=== PATIENT | female | born 1955 | race Caucasian/White ===

== ENCOUNTER 2016-07-08 21:54 | Inpatient (IN) | payer MEDICARE, MEDICAID ==
[~2016-07-08] VITALS: Ht 121.9 cm; Wt 80.0 kg
[2016-07-08 22:05] VITALS: BP 158/85; PULSE 77; RESP 18; O2SAT 88
[2016-07-08 22:43] LABS: BASOPHILS % (AUTO) 0.2 % (0-3); EOSINOPHILS % (AUTO) 0.2 % (0-5); MONOCYTES % (AUTO) 4.7 % (4-12); Mean Corpuscular Hemoglobin 27.2 pg (27.0-35.0); Mean Corpuscular Volume 94.4 fL (81-100); NEUTROPHILS % (AUTO) 83.7 % (40-74); Platelet Count 246 bil/L (150-400)
--- NOTE | 2016-07-08 23:13 | ED.REPORT ---
HPI-Dyspnea / Wheezing Date of Service Jul 08, 2016 ED Provider: Aide Padilla MD Pt is a 60 y/o female w/ a hx of dementia, HTN, T2DM, CVA, DVT, PE, presenting to the ED via EMS due to increasing SOB onset today. She is sent from her retirement with concern for pneumonia and fluid overload. She c/o left chest, left back, and left abdominal pain. There is no documented history of CHF in the retirement documentation. No further HPI is available because patient is demented. There are staff or family members present. CODE STATUS: DNR / LIMITED INTERVENTIONS Nursing Notes Stated Complaint: TROUBLE BREATHING Chief Complaint: Respiratory Complaints Nursing Notes Reviewed: Yes Allergies: Coded Allergies: Influenza Virus Vaccines (Verified Allergy, Unknown, 07/08/16) Sulfa (Sulfonamide Antibiotics) (Verified Allergy, Unknown, 07/08/16) ether (Verified Allergy, Unknown, 07/08/16) heparin (Verified Allergy, Unknown, 07/08/16) lisinopril (Verified Allergy, Unknown, 07/08/16) General Time Seen by MD: 23:12 Chief Complaint Congestive heart failure, Shortness of breath Hx Obtained From: Patient, Theater Manager, EMS Unable to Obtain Hx: Mental status Arrived By: Ambulance Past Medical History Past Medical History Anemia Antiphospholipid syndrome Secondary thrombocytopenia Type 2 diabetes mellitus Hyperlipidemia Major depressive disorder Anxiety disorder Chronic pain syndrome Encephalopathy Peripheral vascular disease Essential hypertension CVA Hx DVT and PE Past Surgical History Bilateral BKA Smoking History Unknown if Ever Smoker Ambulatory Status Wheelchair Review of Systems Unable to Obtain ROS Mental status Physical Exam Initial Vital Signs Vital Signs (First) Date Time Temp Pulse Resp B/P Pulse Ox O2 Delivery O2 Flow Rate FiO2 07/08/16 22:05 36.4 77 18 158/85 88 Room Air 07/09/16 01:13 2 Initial VS: Reviewed, Vital signs abnormal Head / Eyes: Atraumatic, Normocephalic ENT: Mucous membranes moist, Conjunctiva normal, No scleral icterus Abdomen / GI: Soft Skin: Warm, Dry Neurologic: Alert General/Constitutional: Awake, No acute distress Pleasantly demented Neck: Atraumatic, Full range of motion Respiratory / Chest: Atraumatic, No chest wall deformity Coarse breath sounds throughout Bibasilar rales. Cardiovascular: Heart rate NL, Regular rhythm, Heart sounds NL, No gallop, No murmurs, No rubs, Cap refill not delayed, Peripheral circulation NL Fluid overload of upper extremities Interpretation & Diagnostics Lab Results Interpretation Result Diagram: 07/08/16 2215 07/08/16 2215 Test 07/08/16 22:15 07/09/16 00:35 White Blood Count 10.5th/mm3 (3.8-10.1) Red Blood Count 3.05mil/mm3 (3.90-5.20) Hemoglobin 8.3g/dL (12.0-15.6) Hematocrit 28.8% (35.0-46.0) Mean Corpuscular Volume 94.4fL (81-100) Mean Corpuscular Hemoglobin 27.2pg (27.0-35.0) Mean Corpuscular Hemoglobin Concent 28.8% (32.0-37.0) Red Cell Distribution Width 15.4% (12.3-15.4) Platelet Count 246bil/L (150-400) Neutrophils (%) (Auto) 83.7% (40-74) Lymphocytes (%) (Auto) 10.1% (14-46) Monocytes (%) (Auto) 4.7% (4-12) Eosinophils (%) (Auto) 0.2% (0-5) Basophils (%) (Auto) 0.2% (0-3) Hold Purple Top Tube Received (Received) Prothrombin Time 37.5sec (8.1-12.5) Prothromb Time International Ratio 3.42ratio Activated Partial Thromboplast Time 35.6sec (22.8-33.0) Hold Blue Top Tube Received (Received) Sodium Level 139mEq/L (134-144) Potassium Level 4.8mEq/L (3.5-5.2) Chloride Level 100mEq/L (97-108) Carbon Dioxide Level 26mmol/L (18-29) Blood Urea Nitrogen 53mg/dL (8-27) Creatinine 2.18mg/dL (0.57-1.00) Estimat Glomerular Filtration Rate 33mL/min (>59) Glucose Level 102mg/dL (60-99) Lactic Acid Level 1.0mmol/L (0.4-2.0) Calcium Level 8.6mg/dL (8.5-10.1) Total Bilirubin 0.9mg/dL (0.0-1.2) Aspartate Amino Transf (AST/SGOT) 51U/L (0-50) Alanine Aminotransferase (ALT/SGPT) 31U/L (0-32) Alkaline Phosphatase 116U/L (25-165) Troponin T 0.140ug/L (0.0-0.011) Pro-B-Type Natriuretic Peptide > 81059wv/mL (0-287) Total Protein 6.5g/dL (6.4-8.4) Albumin 2.3g/dL (3.4-5.0) Hold Red Top Tube Received (Received) Hold Ariton Top Tube Received (Received) Hold Shelton Top Tube Received (Received) Urine Color Yellow (YELLOW) Urine Appearance Hazy (CLEAR,HAZY) Urine pH 6.0 (5.0-8.0) Urine Specific [place] 1.020 (1.003-1.035) Urine Protein 30mg/dL (NEG,TRACE) Urine Glucose (UA) Negativemg/dL (NEGATIVE) Urine Ketones Tracemg/dL (NEGATIVE) Urine Occult Blood Small (NEGATIVE) Urine Nitrite Positive (NEGATIVE) Urine Bilirubin Negative (NEGATIVE) Urine Urobilinogen Normalmg/dL (NORMAL) Urine Leukocyte Esterase Small (NEGATIVE) Urine RBC 3-10/hpf (0-2) Urine WBC >50/hpf (0-5) Urine Epithelial Cells Moderate/hpf (NONE-MOD) Urine Crystals None seen (NONE SEEN) Urine Bacteria Many/hpf (NONE-FEW) Urine Hyaline Casts None/lpf (NONE) Urine Granular Casts None seen (NONE SEEN) Urine Waxy Casts None seen (NONE SEEN) Urine Red Blood Cell Casts None seen (NONE SEEN) Urine White Blood Cell Casts None seen (NONE SEEN) Urine Mucus None seen (None Seen) Urine Trichomonas None seen (NONE SEEN) Urine Yeast None (NONE SEEN) Urinalysis Comment None Urine Culture Reflexed Indicated ECG Interpretation ECG Interpretation: Normal sinus rhythm rate 77 Flattened T waves in III, AvR, AvL Time: 23:15 Interpreted by: ED physician Normal ECG Interpretation: No acute ischemic changes X-Ray Chest Interpretation Chest Xray Interpretation: Infiltrate including the left lung. Low lung volumes bilaterally. CHF. View: Portable, 1 view Interpretation / Wet Read by: Wet read ED physician Re-Eval/Medical Decision Med Decision/Clinical Course 60-year-old female with known past medical history of upper extremity DVT, multiple CVAs, dementia sent here from retirement with concern for pneumonia. Differential diagnosis includes but is not limited to pneumonia versus electrolyte abnormality versus urinary tract infection versus fluid overload. Unfortunately, patient has never been here before and I do not know her baseline labs. She has a creatinine of 2, along with mildly elevated troponin, elevated BNP, chest x-ray concerning for pneumonia, UTI, and multiple sacral decubitus ulcers. On her retirement records, she is DNR/DNI. I did attempt to contact her son twice as he is her power of prosecuting attorney, to find out what he would wish her to have done, as at this time, I do not feel aggressive intervention would be appropriate. I was unable to contact him. Given this, I have treated her with aspirin, along with broad-spectrum antibiotics for UTI and pneumonia. I do not feel she requires a cardiology consult at this time. I do believe that the elevated troponin is likely secondary to her fluid overload and renal insufficiency of unknown chronicity. My exam of the patient is very limited secondary to her dementia. I have explained to her that she is being admitted to the hospital, though I am unsure if she is aware of what is going on. Patient has been accepted by the hospitalist. Re-Evaluation/Progress #1: Time of Eval: 00:01 Re-Evaluation/Progress Note: Pt rechecked. Informed pt of need for admission. Pt understands and agrees with need for admission. All questions addressed. Re-Evaluation/Progress #2: Time of Eval: 00:49 Re-Evaluation/Progress Note: Attempted to reach the son without success. Consultation : Referral / Consult Name: Bhavna Vazquez MD Consulted With: Hospitalist Call Returned at: 02:02 Air Conditioning Installer: Will see patient, Agrees with eval, Agrees with plan, Accepts admit Note: Case discussed. Counseled Regarding: Diagnosis, Lab results, Need for admission Discharge & Departure Impression: Primary Impression: Pneumonia involving left lung Pneumonia type: due to unspecified organism Lung location: unspecified part of lung Qualified Code: J18.9 - Pneumonia, unspecified organism Additional Impressions: Acute heart failure Heart failure type: unspecified heart failure type Qualified Code: I50.9 - Heart failure, unspecified Fluid overload Hypervolemia type: unspecified Qualified Code: E87.70 - Fluid overload, unspecified UTI (urinary tract infection) Urinary tract infection type: site unspecified Hematuria presence: without hematuria Qualified Code: N39.0 - Urinary tract infection, site not specified Elevated troponin Renal insufficiency Anemia Anemia type: unspecified type Qualified Code: D64.9 - Anemia, unspecified Disposition: ADMITTED TO HOSPITAL Discharge Condition All VS Reviewed: Yes Condition: Stable Referrals: Lizbeth Flores MD (PCP) [place] Attestation Portions of this note were transcribed by Malcolm Kuhn. I, Dr. Padilla personally performed the history, physical exam and medical decision-making; I reviewed and confirmed the accuracy of the information in the transcribed note. Signed by Jaycee Landrum, 07/08/16 - [id number] copies to: Lizbeth Flores MD, Rebecca A MD Jul 08, 2016 23:13 MALCOLM KUHN Jul 08, 2016 23:17
[2016-07-08 23:36] LABS: INR 3.42 ratio
[2016-07-08] MEDS ORDERED: Vancomycin Inj 1,000 MG in IV Premix 1 EACH IV ONE (23:55)
[2016-07-08] MEDS ORDERED: Piperacillin-Tazo 3.375 Gm Inj 3.375 GM in Dextrose 5% Minibag Plus 50 ML IV ONE (23:55)
[2016-07-09] VITALS (9 sets, daily range): BP systolic 127–179; BP diastolic 61–103; PULSE 76–91; RESP 18–20; O2SAT 93–100
[2016-07-09] MEDS ORDERED: Vancomycin Inj 1,000 MG in IV Premix 1 EACH IV SCH
[2016-07-09] MEDS ORDERED: Vancomycin Inj 1,000 MG in IV Premix 1 EACH IV ONE
[2016-07-09] MEDS ORDERED: 0.9% Sodium Chloride 500 ML IV ONE (00:25)
[2016-07-09 01:12] LABS: APPEARANCE,URINE HAZY (CLEAR,HAZY); COLOR,URINE YELLOW (YELLOW); OCCULT BLOOD,URINE SMALL (NEGATIVE); UROBILINOGEN,URINE NORMAL (NORMAL)
[2016-07-09] MEDS ORDERED: Ondansetron 2 mg/mL 2 mL Inj IVPUSH PRN (02:05)
[2016-07-09] MEDS ORDERED: Alum-Mag Hydrox-Simeth 30 mL Suspension PO PRN (02:05)
--- NOTE | 2016-07-09 03:06 | PCM.HPMED ---
Subjective Date of Service Jul 09, 2016 Primary Provider: Admitting Physician: Bhavna Vazquez MD Primary Care Physician: Lizbeth Flores MD Attending Physician: Bhavna Vazquez MD Admit Status: From the Emergency Department Chief Complaint: Shortness of breath History of Present Illness: Pt is a 60 y/o female who resides at [facility] w/ a hx of pseudobulbar dementia, HTN, T2DM diet controlled, CVA on warfarin, DVT, PE, who presented to the ED via EMS due to increasing SOB onset today. She is sent from her senior living with concern for pneumonia and fluid overload. She c/o left chest, left back, and left abdominal pain. There is no documented history of CHF in the senior living documentation nor in [facility]. Patient is demented but she did know that she takes Dilaudid TID and would like to make sure that she gets her pain medication. Review of Systems: Patient unable to give a review of symptoms due to AMS Allergies Coded Allergies: Influenza Virus Vaccines (Verified Allergy, Unknown, 07/08/16) Sulfa (Sulfonamide Antibiotics) (Verified Allergy, Unknown, 07/08/16) ether (Verified Allergy, Unknown, 07/08/16) heparin (Verified Allergy, Unknown, 07/08/16) lisinopril (Verified Allergy, Unknown, 07/08/16) Home Medications from review of [facility] RECORDS: alprazolam 0.25mg PO TID PRN amoxicillin-clav 875-125 Q12 hrs prescribed 07/02/16 atorvastatin 10mg daily clonidine 0.1mg PO for SBP >170 clonidine 0.2mg PO Q8 hrs warfarin 3mg tab daily diphenoxylate-atropine 2.5-0.025, PO Q8hrs PRN diarrhea doxazosin 2mg Q8 hrs Uceris 9mg tab EX (Budesonide), 1 Q am venlafaxine 75 mg daily famotidine 20mg daily fenofibrate nanocrystallized 145mg PO daily fentanyl 25mcg/hr TD patch Q72 hrs folic acid 1mg daily furosemide 40mg, 1 PO on Thursday, Thu and Thursday gabapentin 200mg Q12 hrs hydromorphone 4mg tablet, Q3-6 hrs PRN hydromorphone 8mg, PRN daily iron 325mg labetalol 1 tab PO BID loperamide 2mg, 2 tabs PO Q6hrs mg oxide 400mg daily multivitamin tablet daily oxycodone 5mg Q3 hrs PRN simethicone 80mg tab QID sucralfate 1g, 1 gtab PO daily trazodone 150mg daily triamcinolone 0.1% lotion Tylenol 750 mg Q 4 hrs PRN vitamin C 250mg daily culturelle 10 billion cell capsule, PO Q12 hrs D2 50,000 weekly PMH Essential HTN Diabetes type 2, diet controlled Hx of right BKA, left above the knee amputation depression chronic pain pseudobulbar palsy dependent edema left stump anxiety low back pain with sciatica PVD Hx of encephalopathy Chronic DVT of LE GERD Hyperlipidemia H/O ischemic multifocal multiple vascular territories stroke Stomatitis Anemia of chronic illness Hx thoracic spine surgery Hx stroke right shoulder surgery cataract surgery Surgical History See above Family History family history of stroke family history of CAD lung cancer in father suicide in mother Social History Hx Alcohol Use: No Hx Substance Use: No Hx Tobacco Use: No Smoking Status: Never Smoker Living Arrangement: Halfway Facility ([facility]) Exam Vital Signs Vital Sign - Last Date Time Temp Pulse Resp B/P Pulse Ox O2 Delivery O2 Flow Rate FiO2 07/09/16 01:13 76 20 127/61 95 Nasal Cannula 2 07/08/16 22:05 36.4 Intake and Output 07/08/16 07/08/16 07/09/16 Cumulative From/Thru 15:00 23:00 07:00 07/08/16 22:05 - 07/09/16 01:15 Intake Total 250 ml 250 ml Balance 250 ml 250 ml Intake IV Total 250 ml 250 ml # Voids 1 1 Exam General: alert, oriented x1, cooperative, no acute distress, chronically ill- appearing Eyes: Right eye is partially closed, scleral anicteric Mouth: mouth normal, mucous membranes moist/pink Neck: supple, no thyromegaly Chest & Lungs: crackles B/L bases, worse in LLL, no use of accessory muscles Cardiovascular: no murmurs/rubs/gallops, regular rate/rhythm Pulses: Radial (present and equal) Abdomen: soft, non-tender, non-distended, normoactive bowel tones Extremities: B/L lower extremity amputation; left arm and hand weak and crippled Skin: No rashes Neurological: Slow, deliberate speech, confused Lab and Diagnostics Result Diagram: 07/08/16221407/08/162214 X-Rays, CTs and MRIs Chest Xray Interpretation: Infiltrate including the left lung. Low lung volumes bilaterally. CHF. View: Portable, 1 view Interpretation / Wet Read by: Wet read ED physician 12-lead ECG ECG Interpretation: Normal sinus rhythm rate 77 Flattened T waves in III, AvR, AvL Time: 23:15 Interpreted by: ED physician Normal ECG Interpretation: No acute ischemic changes Assessment & Plan Pt is a 60 y/o female who resides at [facility] w/ a hx of pseudobulbar dementia, HTN, T2DM diet controlled, CVA on warfarin, DVT, PE, who presented to the ED via EMS due to increasing SOB onset today. Note, day team to reconcile medications once they have been verified and recorded. Shortness of breath, likely CHF on x-ray possibly HCAP, present on admission, acute - Patient's outpatient records have no indication of past CHF diagnosis - x-ray has cephalization pattern - ProBNP is 70,000 (in setting of kidney failure, this is still high) - Crackles heard on auscultation B/L - Echocardiogram ordered for the morning. - Considered pneumonia, although patient afebrile, x-ray shows CHF-like picture , lactic acid normal, WBC only 10.5 but does have left shift. CHF appears more likely than pneumonia. - Vanco and Zosyn given in the ED x1. Because of the nephrotoxicity and the clinical picture of CHF, not pneumonia, will discontinue Vanc + Zosyn. - Patient was prescribed Augmentin 7 days ago in the outpatient. Unknown duration or what it was treating. - Influenza negative - Furosemide 40mg IV ordered x1. Please adjust dose for proper response. Urinary tract infection, present on admission, acute - Pt received vanco and Zosyn in the ED (which may elevate her creatinine again) . Will start ceftriaxone 2g IV Q24 hrs - Urine culture pending Acute kidney injury, present on admission - Today BUN of 53; Creatinine 2.18. on 06/25/16 outpatient: BUN was 36 and Creatinine was 2.04. 10/2015 BUN was 31, creatinine 0.91. - Patient has fluid overload at this time. Need to withhold fluids. - No sodium/potassium abnormalities - Will monitor Diabetes type 2 not on medication, present on admission, chronic - A1c was 4.5 taken 06/25/16 (seen on review of outpatient records). A1c decrease likely from kidney disease History of CVA, present on admission, chronic - anticoagulated on warfarin - supratherapeutic INR of 3.75 - warfarin per pharmacy Chronic low back pain, present on admission - Patient has opiate habituation. It was the one thing that she asked me to continue -- her Dilaudid TID. Will continue Other chronic conditions present on admission: Essential HTN Hx of right BKA, left above the knee amputation depression chronic pain pseudobulbar palsy dependent edema left stump anxiety low back pain with sciatica PVD Hx of encephalopathy Chronic DVT of LE GERD Hyperlipidemia H/O ischemic multifocal multiple vascular territories stroke Stomatitis Anemia of chronic illness Hx thoracic spine surgery Hx stroke right shoulder surgery cataract surgery Note: An attempt was made to contact patient's son regarding goals of care. Patient has significantly worsened in recent months (per records) and son needs to make decisions about goals of care. Palliative care may be considered to help in this situation if needed. - Acetaminophen as needed for mild pain/fever/headache - Bowel regimen as needed - Antiemetic as needed Patient admitted under inpatient status with expected length of stay > 2 midnights for severity of present symptoms, complexities of treatment plan and risk for adverse events CODE STATUS: DNR/DNI VTE Prophylaxis: Theraputic Anticoag with Warfarin Resuscitation Status: DNR/DNI:Do Not Resuscitate/Intubate Attending Statement Patient seen and examined by myself and agree with above plan. copies to: Tasneem Dang; Lizbeth Flores MD, Janice M DO Jul 09, 2016 03:06 Bhavna Vazquez MD Jul 09, 2016 06:40
[2016-07-09] MEDS ORDERED: Furosemide 10 mg/mL 4 mL Inj IVPUSH ONE (05:20)
--- NOTE | 2016-07-09 07:25 | NUR ---
Admission note Pt admitted to ER as an inpatient due limited bed availability. Admission assessment and screening completed. VSS. Pt is confused. P500 bed ordered. Blister filled with blood noted on right thigh which was present on admission. Blanchable redness to sacrum area noted. Mepilex dressing applied. Pt turn Q2 hrs No overt complications noted.
[2016-07-09 08:31] LABS: INR 3.46 ratio
[2016-07-09] MEDS ORDERED: Furosemide 10 mg/mL 4 mL Inj ONE (09:28)
[2016-07-09] MEDS: ALPRAZolam 0.5 mg Tablet PO SCH ×3 (09:32→20:16)
--- NOTE | 2016-07-09 10:30 | DRSVH ---
PROCEDURE: X-RAY CHEST ONE VIEW, PORTABLE ([id number]) INDICATIONS: cough TECHNIQUE: One view of the chest was acquired. COMPARISON: None. FINDINGS: Surgical changes and devices: None. Lungs and pleura: Diffuse, widespread bilateral interstitial and mid left lung airspace opacity prese nt. No pleural effusion or pneumothorax. Mediastinum: Mediastinal contours appear normal. Heart size is normal. Bones and chest wall: No suspicious bony lesions. Overlying soft tissues appear unremarkable. IMPRESSION: Pulmonary edema and/or pneumonia involving the mid left lung. Recommend clinical correlation. Continued radiographic surveillance to resolution is recommended. Dictated by: Dean Ngueyn [facility] Interpreted: Linda Lambert MD on 07/09/2016 at 10:29 Transcribed by: NOEMÍ on 07/09/2016 at 10:29 Approved by: Linda Lambert M.D. on 07/09/2016 at 17:00
--- NOTE | 2016-07-09 11:11 | NUR ---
Patient comes from [place] and is there under [facility] terminal computer operator care. [facility] provider one # is [id number]. Gave access. Updated PLANT GUARD
[2016-07-09] MEDS: cefTRIAXone Inj 2,000 MG in IV Premix 1 EACH IV SCH (11:54)
--- NOTE | 2016-07-09 13:55 | NUR ---
SKin Pt with large bruise and fluid filled blister to R posterior hip/thigh near buttock, no open or draining area. Mepilex to sacrum C/D/I, blanchable redness. Dry skin tear to R upper medial back, not currently draining, telfa and tegaderm placed over site. Turning q2hrs and providing skin care with incontinence and brief changes. On P500 bed and PUP orders already initiated by previous RN. Care continues.
--- NOTE | 2016-07-09 14:00 | NUR ---
report to Camille on [facility] Called report to Camille on [facility], pt to go to room 3023. Also spoke with about swallow eval as pt has congested cough and no diet ordered, MD to enter orders for swallow eval. Pt was also given ordered lasix this morning and incontinent of urine x1, bladder scan post void and was 348ml, notified and aware and no new orders at this time, wishes for pt to be re-checked/bladder scanned once transferred to [facility]. Addendum: 07/09/16 at 1418 by MARGARET DOMÍNGUEZ RN Transfer to [facility] room 3023 from via bed with RN and SENIOR J2EE DEVELOPER assist in stable condition at 1410.
[2016-07-09] MEDS ORDERED: FAMO20TA4 PO (14:11)
[2016-07-09] MEDS ORDERED: FURO40TA4 PO (14:11)
[2016-07-09] MEDS ORDERED: AGM875T PO (14:11)
[2016-07-09] MEDS ORDERED: BUDE3CAP7 PO (14:11)
[2016-07-09] MEDS ORDERED: CLON0.1T PO ×2 (14:11→14:21)
[2016-07-09] MEDS ORDERED: DOXA2TAB PO (14:11)
[2016-07-09] MEDS ORDERED: CHOL500050 PO (14:11)
[2016-07-09] MEDS ORDERED: TRAZ150T72 PO (14:11)
[2016-07-09] MEDS ORDERED: LOM PO (14:11)
[2016-07-09] MEDS ORDERED: MAGN400T4 PO (14:11)
[2016-07-09] MEDS ORDERED: FENT1PAT7 TOPICAL (14:11)
[2016-07-09] MEDS ORDERED: VENL150C98 PO (14:11)
[2016-07-09] MEDS ORDERED: ATOR10TA66 PO (14:11)
[2016-07-09] MEDS ORDERED: ASCO250T7 PO (14:11)
[2016-07-09] MEDS ORDERED: FENO145T19 PO (14:11)
[2016-07-09] MEDS ORDERED: LACT1CAP37 PO (14:11)
[2016-07-09] MEDS ORDERED: TRIA60LO3 TOPICAL (14:11)
[2016-07-09] MEDS ORDERED: LABE200T PO (14:11)
[2016-07-09] MEDS ORDERED: FOLI1TAB18 PO (14:11)
[2016-07-09] MEDS ORDERED: FERR325T39 PO (14:11)
[2016-07-09] MEDS ORDERED: MULT1CAP45 PO (14:11)
[2016-07-09] MEDS ORDERED: GABA-500 PO (14:11)
[2016-07-09] MEDS ORDERED: LEVO50TA6 PO (14:11)
[2016-07-09] MEDS ORDERED: NA P133E23 RC (14:21)
[2016-07-09] MEDS ORDERED: ACET325T51 PO (14:21)
[2016-07-09] MEDS ORDERED: LOPE2CAP PO (14:21)
[2016-07-09] MEDS ORDERED: OXYC5TAB72 PO (14:21)
[2016-07-09] MEDS ORDERED: ALPR0.254 PO (14:21)
[2016-07-09] MEDS ORDERED: HYDR4TAB PO (14:21)
[2016-07-09] MEDS ORDERED: SIME80TA53 PO (14:21)
[2016-07-09] MEDS ORDERED: BISA10SU61 RC (14:21)
[2016-07-09] MEDS ORDERED: MAGN400O4 PO (14:21)
[2016-07-09] MEDS ORDERED: SUCR1TAB PO (14:21)
--- NOTE | 2016-07-09 14:30 | NUR ---
Arrival to room 3023 Arrival to room 3023 from ER via P500. Nasal swab obtained and sent to lab. O2 in place, unable to lay flat, wet, nonproductive cough. Turning schedule in place. Pt oriented to room and call light. Bed alarm in place at this time.
--- NOTE | 2016-07-09 17:10 | NUR ---
Wound Care Pressure ulcer protocol received, pt seen at bedside with nursing. 4 yo SNF resident admitted with fluid overload. Patient is a double amputee with dementia. Patient is in a low airloss rental bed. Her entire left lateral forearm is bruised , skin intact no dressing needed. She has bruising at her left posterior thigh approx 20 cms in length,skin intact no dressing required.. She has a large bruise and fluid filled blister at her R posterior hip measuring 4 cms in diameter, this is covered with a mepilex dressing,blister still intact, can be changed PRN by nursing to Q 48 hrs. She has a skin tear at her R upper medial back, not currently draining,covered with mepilex dressing, bureau director be changed by nursing prn to q 48hrs. No pressure injuries noted, just bruising, sacrum red but blanchable. Recommend frequent repositioning.
--- NOTE | 2016-07-09 17:43 | NUR ---
Evaluation completed. Rec: Stim diet (Pureed only). Medication crushed in pureed. 1:1 feeding Please go to "Notes" then click on "Assessments and Notes" (bottom left corner of screen). Then select appropriate discipline tab on top of screen.
--- NOTE | 2016-07-09 23:07 | PCM.PNMED ---
Subjective Date of Service Jul 09, 2016 Subjective Patient states she feels much better since admission. Exam Vital Signs Vital Sign - Last Date Time Temp Pulse Resp B/P Pulse Ox O2 Delivery O2 Flow Rate FiO2 07/09/16 20:54 37.1 90 20 179/103 95 Nasal Cannula 1.00 Intake and Output 07/08/16 07/08/16 07/09/16 Cumulative From/Thru 15:00 23:00 07:00 07/08/16 22:05 - 07/09/16 06:27 Intake Total 250 ml 250 ml Balance 250 ml 250 ml IV Total 250 ml 250 ml # Voids 2 2 # Bowel Movements 1 1 Exam General: Patient is resting comfortably turn on her right side HEENT: Head is atraumatic normocephalic. Eyes: Pupils are equally round and reactive to light and accommodation. Extraocular muscles are intact. Sclera are white anicteric. Subconjunctival mucosa is pink. Ears and nose are unremarkable. Oropharynx: There is no mucosal lesions, there is no thrush, there is no pharyngitis. However, her mucosa is somewhat dry. Neck: Is supple, there are no nodes, or masses or tenderness. Chest: Is clear to auscultation and percussion. There are no rales, rhonchi, wheezes or rubs. Heart: Rate, rhythm is regular. There is no murmur, rub or gallop. Abdomen: Good bowel sounds are present. Abdomen is soft, nontender, no organomegaly or masses were appreciated. Extremities: Are symmetrical and well perfused. There is no edema, there is no cellulitis, no rash. Neurologic: There are no focal neurological deficits. Cranial nerves II through XII are intact. There are no sensory or motor deficits. Psychiatric: Patients mood is calm and shows no sign of agitation. Genital: Deferred Rectal: Deferred Lab and Diagnostics Result Diagram: 07/08/16221407/08/162214 Microbiology Name: ALVARADO NEAL Age/Sex: 60/F Attend Dr: MARGUERITE,SARAH WOO Acct: [id number] Unit: [id number] Status: REG ER Location: SED Re07/08/16 Disch: Specimen: [id number] Collected: 07/08/16 Status: COMP Req#: [id number] Received: 07/08/16 Source: NOSE Sp Desc : Subm Dr: SARAH EVERETT MD Ordered: RAPID FLU IRS Comments: Collected by Nurse/Unit? Y/N Y Procedure Result Verified Site Microbiology ANKIT INFLUENZA RAPID AG SCREEN Final 07/08/16 RESULT NEGATIVE FOR INFLUENZA TYPE A AND B This rapid assay is a screen test only for Influenza A&B and does not definitively rule out the presence of FLU A & B or other respiratory viral pathogens. The assay's sensitivity varies on the specimen type submitted. Nasal washes are optimum. Recommend respiratory viral cultures and DFA to confirm negative screens and rule out other viral pathogens. Per CDC, the sensitivity of this method is approximately 50% for H1N1. A negative result does NOT rule out Novel H1N1 (Swine Flu) Name: ALVARADO NEAL Age/Sex: 60/F Attend Dr: Bhavna Vazquez MD Acct: [id number] Unit: [id number] Status: ADM IN Location: [place] [address] Re07/09/16 Disch: Specimen: [id number] Collected: 07/09/16 Status: RES Req#: [id number] Received: 07/09/16 Source: RANDOM Sp Desc : Subm Dr: SARAH EVERETT MD Ordered: URINE CULT Procedure Result Verified Site Microbiology ANKIT CULT URINE Preliminary 07/09/16-932 Insufficient growth, culture is reincubated. X-Rays, CTs and MRIs Chest Xray Interpretation: Infiltrate including the left lung. Low lung volumes bilaterally. CHF. View: Portable, 1 view Interpretation / Wet Read by: Wet read ED physician 12-lead ECG ECG Interpretation: Normal sinus rhythm rate 77 Flattened T waves in III, AvR, AvL Time: 23:15 Interpreted by: ED physician Normal ECG Interpretation: No acute ischemic changes Assessment & Plan Pt is a 60 y/o female who resides at [facility] w/ a hx of pseudobulbar dementia, HTN, T2DM diet controlled, CVA on warfarin, DVT, PE, who presented to the ED via EMS due to increasing SOB onset today. Shortness of breath, likely CHF on x-ray possibly HCAP, present on admission, acute and nonhealing - Patient's outpatient records have no indication of past CHF diagnosis - x-ray has cephalization pattern - ProBNP is 70,000 (in setting of kidney failure, this is still high) - Crackles heard on auscultation B/L - Echocardiogram ordered for the morning. And is still pending - Considered pneumonia, although patient afebrile, x-ray shows CHF-like picture , lactic acid normal, WBC only 10.5 but does have left shift. CHF appears more likely than pneumonia. - Vanco and Zosyn given in the ED x1. Because of the nephrotoxicity and the clinical picture of CHF, not pneumonia, will discontinue Vanc + Zosyn. - Patient was prescribed Augmentin 7 days ago in the outpatient. Unknown duration or what it was treating. - Influenza negative - Furosemide 40mg IV ordered x1. We will continue daily for now Urinary tract infection, present on admission, acute - Pt received vanco and Zosyn in the ED (which may elevate her creatinine again) . Will start ceftriaxone 2g IV Q24 hrs(we will continue) - Urine culture pending Acute kidney injury, present on admission - Today BUN of 53; Creatinine 2.18. on 06/25/16 outpatient: BUN was 36 and Creatinine was 2.04. 10/2015 BUN was 31, creatinine 0.91. - Patient has fluid overload at this time. Need to withhold fluids. - No sodium/potassium abnormalities - Will monitor and if no improvement will consider nephrology consultation. Diabetes type 2 not on medication, present on admission, chronic - A1c was 4.5 taken 06/25/16 (seen on review of outpatient records). A1c decrease likely from kidney disease History of CVA, present on admission, chronic - anticoagulated on warfarin - supratherapeutic INR of 3.75 - warfarin per pharmacy Chronic low back pain, present on admission - Patient has opiate habituation. It was the one thing that she asked me to continue -- her Dilaudid TID. Will continue Other chronic conditions present on admission: Morbid obesity Essential HTN Hx of right BKA, left above the knee amputation depression chronic pain pseudobulbar palsy dependent edema left stump anxiety low back pain with sciatica PVD Hx of encephalopathy Chronic DVT of LE GERD Hyperlipidemia H/O ischemic multifocal multiple vascular territories stroke Stomatitis Anemia of chronic illness Hx thoracic spine surgery Hx stroke right shoulder surgery cataract surgery Note: An attempt was made to contact patient's son regarding goals of care. Patient has significantly worsened in recent months (per records) and son needs to make decisions about goals of care. Palliative care may be considered to help in this situation if needed. - Acetaminophen as needed for mild pain/fever/headache - Bowel regimen as needed - Antiemetic as needed Patient admitted under inpatient status with expected length of stay > 2 midnights for severity of present symptoms, complexities of treatment plan and risk for adverse events CODE STATUS: DNR/DNI Pain Evaluation: Adequate Pain Control GI Prophylaxis: H2 quinn VTE Prophylaxis: Theraputic Anticoag with Warfarin Resuscitation Status: DNR/DNI:Do Not Resuscitate/Intubate Patrick Clark MD Jul 09, 2016 23:07
[2016-07-10] VITALS (9 sets, daily range): BP systolic 125–182; BP diastolic 57–98; PULSE 59–99; RESP 16–20; O2SAT 93–95
--- NOTE | 2016-07-10 07:50 | NUR ---
Fever Patient had temp 101.5 axillary. given 975mg Tylenol PO crushed in applesauce. 30 minutes later patient sleeping. appears comfortable will continue to monitor. Patient has been requested dilaudid . I went in to give it to her and she was sleeping, patient has been sleeping throughout the night appears comfortable. Q2 hour turns implemented
[2016-07-10 08:22] LABS: INR 3.7 ratio
[2016-07-10] MEDS: ALPRAZolam 0.5 mg Tablet PO SCH ×3 (08:35→20:44)
[2016-07-10] MEDS: Pantoprazole 40 mg ER24 Tablet PO SCH (08:37)
[2016-07-10] MEDS: cefTRIAXone Inj 2,000 MG in IV Premix 1 EACH IV SCH (08:45)
[2016-07-10 08:51] LABS: BASOPHILS % (AUTO) 0 % (0-3); EOSINOPHILS % (AUTO) 0.2 % (0-5); MONOCYTES % (AUTO) 3.5 % (4-12); Mean Corpuscular Hemoglobin 27.5 pg (27.0-35.0); Mean Corpuscular Volume 94.6 fL (81-100); NEUTROPHILS % (AUTO) 90.3 % (40-74); Platelet Count 281 bil/L (150-400)
[2016-07-10 09:04] LABS: Magnesium 2.7 mg/dL (1.6-2.6)
--- NOTE | 2016-07-10 13:33 | NUR ---
Discharge Nursing note: Patient was discharged to home at 1320 after he was given his Daptomycin infusion through his IJ Cath. Patients IJ cath was left in place for his outpatient ABT infusions. Patient received all of his personal belongings , wallet, money and credit cards from the hospital safe. Patient received his home med from [facility] and all his home medications from the hospital pharmacy. Per out patient infusion company will contact patient at home to schedule times of his IV infusions. All of patietns discharge information was reviewed with him and his questions were answered to his satisfaction before discharge. Patient was escorted to the hospital lobby and he was driven home by his . Addendum: 07/10/16 at 1343 by HANDY MENA RN Wrong Patient: Above nursing note was intended for different patient .
--- NOTE | 2016-07-10 14:33 | DRSVH ---
[facility] [address] [place] [address] Echocardiogram Report Name: ALVARADO NEAL Study Date: 07/10/2016 Height: 48 in Hospital Exam Location: [facility] Weight: 196 lb Gender: Female BSA: 1.6 m2 : 1955 Age: 60 yrs BP: 167/57 mmHg Reason For Study: SOB, Fluid overload Ordering Physician: Beronica Fuentes Performed By: Zhanna Neil Referring Physician: Dr. Pb Flores Interpretation Summary Left ventricular systolic function is low normal with the ejection fraction is estimated to be 55-60%. There is a flattened septum that is consistent with a right ventricular pressure overload state but there are no other obvious focal wall motion abnormalities. Left ventricular wall thickness is at the upper limits of normal with diastolic parameters suggesting a pseudonormalization pattern, consistent with elevated filling pressures. The right ventricle is moderately dilated and right ventricular systolic function is moderately reduced. Right ventricular systolic pressure is estimated to be at least 47 mmHg plus the clinically estimated CVP which cannot be estimated on this exam. The left atrium is severely dilated and the right atrium is moderately dilated. There is mild mitral regurgitation and mild tricuspid regurgitation but no other significant valvular heart disease. The ascending aorta is mildly enlarged. Procedure: A two-dimensional transthoracic echocardiogram with color flow and Doppler was performed. The study quality was technically adequate. There is no prior echocardiogram noted for this patient. A contrast injection of Definity was performed to improve assessment of LV function. The patient was in normal sinus rhythm during the exam. Left Ventricle: The left ventricle is normal in size. Left ventricular wall thickness is at the upper limits of normal. Left ventricular systolic function is low normal. The ejection fraction is estimated to be 55-60%. Flattened septum is consistent with RV pressure overload. There are no other obvious focal wall motion abnormalities. Assessment of diastolic parameters suggests a pseudonormalization pattern, consistent with elevated filling pressures. Right Ventricle: The right ventricle is moderately dilated. Right ventricular systolic function is moderately reduced. Atria: The left atrium is severely dilated. The right atrium is moderately dilated. The interatrial septum is intact with no evidence for an atrial septal defect. Mitral Valve: There is moderate mitral annular calcification. The mitral valve leaflets appear mildly thickened, but open well. There is mild mitral regurgitation. Aortic Valve: The aortic valve is trileaflet. The aortic valve is mildly calcified. The aortic valve opens well. There is no aortic valve stenosis. No aortic regurgitation is present. Tricuspid Valve: The tricuspid valve is normal in structure and function. There is mild tricuspid regurgitation. Right ventricular systolic pressure is estimated to be at least 47 mmHg plus the clinically estimated CVP which cannot be estimated on this exam. Pulmonic Valve: The pulmonic valve is not well seen, but is grossly normal. There is trace pulmonic regurgitation. There is no other significant valvular heart disease. Great Vessels: The aortic root is normal size. The ascending aorta is mildly enlarged. The inferior vena cava was not visualized. Pericardium/ Pleura There is no pericardial effusion. MMode/2D Measurements & Calculations LVIDd: 4.9 cm LA dimension: 4.3 cm RA long axis LVOT diam LVIDs: 3.2 cm FS: 35.8 % LA A2 area: 24.0 cm RA area AoV Opening EPSS: 0.45 cm LA A4 area: 27.8 cm IVSd: 1.2 cm LA length (vol): 6.2 cm: 20.5 cm Ao root diam LVPWd: 1.0 cm LA vol: 91.0 ml RA vol LA vol index : 62.4 ml Aortic Jxn RA : 57.8 ml/m2 : 39.6 mm/ asc Aorta RVDd minor Diam: 3.5 cm : 4.2 cm LV koroma. diameter/BSA LV sys. diameter/BSA TAPSE: 1.9 cm (cm/m^2): 3.1 (cm/m^2): 2.0 Doppler Measurements & Calculations Ao V2 max MV E max otto MV E/A: 1.4 TR max otto : 174.5 cm/sec : 116.0 cm/sec Med Peak E' Otto : 342.7 cm/sec Ao max PG MV A max otto TR max PG : 12.2 mmHg : 80.4 cm/sec E/E' med: 33.4 : 47.0 mmHg Ao mean PG MV P1/2t: 43.4 msec Lat Peak E' Otto PA V2 max : 85.5 cm/sec LVOT Max Otto E/E' lat: 9.6 PA mean PG : 108.4 cm/sec MV A dur: 0.10 sec YARA(I,D): 2.1 cm PA Accel Time sev ratio : 0.14 sec MV dec time MV P1/2t max otto Ao V2 mean LV V1 max PG : 0.15 sec : 111.7 cm/sec Ao V2 VTI: 32.8 cm LV V1 VTI MVA(P1/2t): 5.1 cm2 : 20.3 cm YARA(V,D): 2.1 cm2 PA V2 mean YARA indexed to BSA : 55.2 cm/sec (cm^2/m^2): 1.3 Reading Physician:02:32 PM
--- NOTE | 2016-07-10 18:19 | NUR ---
Temp and B/P: Patients temp spiked to 100 F this evening. And her B/P increased to 182/95. MD was notified. PO Tylenol was given PRN. Per MD B/C were ordered. Patient has been confused and having s/s of delirium rambling with her speech and not making sense.
[2016-07-10] MEDS: Vancomycin Dose per Pharmacist XX SCH (21:45)
--- NOTE | 2016-07-10 22:01 | PCM.PNMED ---
Subjective Date of Service Jul 10, 2016 Subjective The patient remains pleasantly confused. She has no new complaints. Exam Vital Signs Vital Sign - Last Date Time Temp Pulse Resp B/P Pulse Ox O2 Delivery O2 Flow Rate FiO2 07/10/16 20:29 38.1 92 16 174/93 95 Nasal Cannula 3.00 Intake and Output 07/09/16 07/09/16 07/10/16 Cumulative From/Thru 15:00 23:00 07:00 07/08/16 22:05 - 07/09/16 18:28 Intake Total 412 ml 0 ml 662 ml Balance 412 ml 0 ml 662 ml Intake Oral 0 ml 0 ml IV Total 412 ml 662 ml # Voids 1 3 # Bowel Movements 0 1 Exam General: Patient is resting comfortably on her back. HEENT: Head is atraumatic normocephalic. Eyes: Pupils are equally round and reactive to light and accommodation. Extraocular muscles are intact. Sclera are white anicteric. Subconjunctival mucosa is pink. Ears and nose are unremarkable. Oropharynx: There is no mucosal lesions, there is no thrush, there is no pharyngitis. However, her mucosa is somewhat dry. Neck: Is supple, there are no nodes, or masses or tenderness. Chest: Is clear to auscultation and percussion. There are no rales, rhonchi, wheezes or rubs. Heart: Rate, rhythm is regular. There is no new murmur, rub or gallop. Abdomen: Good bowel sounds are present. Abdomen is obese, soft, nontender, no organomegaly or masses were appreciated. Extremities: Left upper extremity is edematous. However there is wrinkling of the skin indicating improvement in the edema. There is extensive ecchymosis of the left upper extremity unchanged from admission. There is blotchy ecchymosis 4/focal bruising on the right upper extremity There is no cellulitis, no rash. Neurologic: There are no focal neurological deficits. Cranial nerves II through XII are intact. There are no sensory or motor deficits. Patient is pleasantly confused Psychiatric: Patients mood is calm and shows no sign of agitation. Genital: Deferred Rectal: Deferred Lab and Diagnostics Result Diagram: 07/10/16 0750 07/10/16 0750 Microbiology Name: ALVARADO NEAL Age/Sex: 60/F Attend Dr: MARGUERITE,SARAH WOO Acct: [id number] Unit: [id number] Status: REG ER Location: SED Re07/08/16 Disch: Specimen: [id number] Collected: 07/08/16 Status: COMP Req#: [id number] Received: 07/08/16 Source: NOSE Sp Desc : Subm Dr: MARGUERITE,ED Ordered: RAPID FLU IRS Comments: Collected by Nurse/Unit? Y/N Y Procedure Result Verified Site Microbiology ANKIT INFLUENZA RAPID AG SCREEN Final 12/27/16-2302 RESULT NEGATIVE FOR INFLUENZA TYPE A AND B This rapid assay is a screen test only for Influenza A&B and does not definitively rule out the presence of FLU A & B or other respiratory viral pathogens. The assay's sensitivity varies on the specimen type submitted. Nasal washes are optimum. Recommend respiratory viral cultures and DFA to confirm negative screens and rule out other viral pathogens. Per CDC, the sensitivity of this method is approximately 50% for H1N1. A negative result does NOT rule out Novel H1N1 (Swine Flu) Name: ALVARADO NEAL Age/Sex: 60/F Attend Dr: Patrick Clark Acct: [id number] Unit: [id number] Status: ADM [place] [facility] [place] Re07/09/16 Disch: Specimen: [id number] Collected: 07/09/16 Status: JELANI Stahl#: [id number] Received: 07/09/16 Source: RANDOM Sp Desc : Rex Dr: MARGUERITE,SARAH WOO Ordered: URINE CULT Procedure Result Verified Site Microbiology ANKIT CULT URINE Preliminary 07/10/16-828 PRELIMINARY ID GRAM NEGATIVE AG ID AND SENS TO FOLLOW COLONY COUNT/QUANTITY >100,000 CFU/ml X-Rays, CTs and MRIs Chest Xray Interpretation: Infiltrate including the left lung. Low lung volumes bilaterally. CHF. View: Portable, 1 view Interpretation / Wet Read by: Wet read ED physician 12-lead ECG ECG Interpretation: Normal sinus rhythm rate 77 Flattened T waves in III, AvR, AvL Time: 23:15 Interpreted by: ED physician Normal ECG Interpretation: No acute ischemic changes Cardiac Echo Impressions Echocardiogram Report Name: ALVARADO NEAL Study Date: 07/10/2016 Height: 48 in Hospital Exam Location: [facility] Weight: 196 lb Gender: Female BSA: 1.6 m2 : 1955 Age: 60 yrs BP: 167/57 mmHg Reason For Study: SOB, Fluid overload Ordering Physician: Beronica Fuentes Performed By: Zhanna Neil Referring Physician: Dr. Pb Flores Interpretation Summary Left ventricular systolic function is low normal with the ejection fraction is estimated to be 55-60%. There is a flattened septum that is consistent with a right ventricular pressure overload state but there are no other obvious focal wall motion abnormalities. Left ventricular wall thickness is at the upper limits of normal with diastolic parameters suggesting a pseudonormalization pattern, consistent with elevated filling pressures. The right ventricle is moderately dilated and right ventricular systolic function is moderately reduced. Right ventricular systolic pressure is estimated to be at least 47 mmHg plus the clinically estimated CVP which cannot be estimated on this exam. The left atrium is severely dilated and the right atrium is moderately dilated. There is mild mitral regurgitation and mild tricuspid regurgitation but no other significant valvular heart disease. The ascending aorta is mildly enlarged. Assessment & Plan Pt is a 60 y/o female who resides at [facility] w/ a hx of pseudobulbar dementia, HTN, T2DM diet controlled, CVA on warfarin, DVT, PE, who presented to the ED via EMS due to increasing SOB onset today. Shortness of breath, likely CHF on x-ray possibly HCAP, present on admission, acute and nonhealing - Patient's outpatient records have no indication of past CHF diagnosis - x-ray has cephalization pattern - ProBNP is 70,000 (in setting of kidney failure, this is still high) - Crackles heard on auscultation B/L - Echocardiogram complete series report above - Considered pneumonia initially, however patient was afebrile, x-ray shows CHF- like picture, lactic acid normal, WBC only 10.5 but does have left shift. Initially CHF was considered more likely than pneumonia. However, now patient white blood cell count is over 20,000 - Vanco and Zosyn given in the ED x1. Because of the nephrotoxicity and the clinical picture of CHF, not pneumonia, Vancomycin and Zosyn. Were discontinued. However due to the left shift on the CBC differential on admission and now white blood cell count over 20,000 would recommend restarting vancomycin IV and instead of Zosyn and cefepime 2 g IV every 12 hours and Flagyl 500 mg IV every 12 hours. Will start these today. Meanwhile will discontinue ceftriaxone - Patient was prescribed Augmentin 7 days ago in the outpatient. Unknown duration or what it was treating. - Influenza negative - Furosemide 40mg IV ordered x1. We will continue daily for now. Will restart in a.m. Urinary tract infection, present on admission, acute - Pt received vanco and Zosyn in the ED. This was changed to ceftriaxone. However, due to the marked elevation in white blood cell count and expansion of Vancomycin cefepime and Flagyl will discontinue ceftriaxone. - Urine culture shows greater than 100,000 colonies per milliliter of gram- negative ag and final identification is pending. Acute kidney injury, present on admission - On admission BUN of 53; Creatinine 2.18. on 06/25/16 outpatient: BUN was 36 and Creatinine was 2.04. On 10/2015 BUN was 31, creatinine 0.91. -Today the renal function has improved and the BUN is 47 and creatinine 1.91 - Patient has fluid overload at this time. Need to withhold fluids. - No sodium/potassium abnormalities - Will monitor and if no improvement will consider nephrology consultation. Diabetes type 2 not on medication, present on admission, chronic - A1c was 4.5 taken 06/25/16 (seen on review of outpatient records). A1c decrease likely from kidney disease History of CVA, present on admission, chronic - anticoagulated on warfarin - supratherapeutic INR of 3.75 - warfarin per pharmacy Chronic low back pain, present on admission - Patient has opiate habituation. It was the one thing that she asked me to continue -- her Dilaudid TID. Will continue Other chronic conditions present on admission: Morbid obesity Essential HTN Hx of right BKA, left above the knee amputation depression chronic pain pseudobulbar palsy dependent edema left stump anxiety low back pain with sciatica PVD Hx of encephalopathy Chronic DVT of LE GERD Hyperlipidemia H/O ischemic multifocal multiple vascular territories stroke Stomatitis Anemia of chronic illness Hx thoracic spine surgery Hx stroke right shoulder surgery cataract surgery - Acetaminophen as needed for mild pain/fever/headache - Bowel regimen as needed - Antiemetic as needed Patient admitted under inpatient status with expected length of stay > 2 midnights for severity of present symptoms, complexities of treatment plan and risk for adverse events CODE STATUS: DNR/DNI Pain Evaluation: Adequate Pain Control GI Prophylaxis: H2 quinn VTE Prophylaxis: Theraputic Anticoag with Warfarin Resuscitation Status: DNR/DNI:Do Not Resuscitate/Intubate Patrick Clark MD Jul 10, 2016 22:01
[2016-07-10] MEDS: metroNIDAZOLE Inj 500 MG in IV Premix 1 EACH IV SCH (22:42)
[2016-07-10] MEDS ORDERED: 0.9% Sodium Chloride 250 ML ONE (22:45)
[2016-07-10] MEDS: Cefepime Inj 1,000 MG in Dextrose 5% Minibag Plus 50 ML IV SCH (23:29)
[2016-07-11] VITALS (7 sets, daily range): BP systolic 133–181; BP diastolic 74–98; PULSE 86–99; RESP 16–18; O2SAT 93–98
--- NOTE | 2016-07-11 01:40 | PCM.CONPHA ---
Subjective Date of Service: Jul 11, 2016 Requesting Provider: Patrick Clark MD Reason for Pharmacy Consult: Vancomycin Dosing Objective Vital Signs Date Time Temp Pulse Resp B/P Pulse Ox O2 Delivery O2 Flow Rate FiO2 07/11/16 00:45 37.2 87 16 177/98 98 Nasal Cannula 3.00 07/11/16 00:44 Supplement Oxygen 07/10/16 21:30 92 07/10/16 20:29 38.1 92 16 174/93 95 Nasal Cannula 3.00 07/10/16 20:29 Supplement Oxygen 07/10/16 17:40 38.0 96 16 182/98 94 Nasal Cannula 1.00 07/10/16 17:00 Supplement Oxygen 07/10/16 14:40 36.9 59 16 148/89 94 Nasal Cannula 1.00 07/10/16 10:01 38.5 88 16 125/73 95 Nasal Cannula 1.00 07/10/16 08:30 Supplement Oxygen 07/10/16 08:00 89 07/10/16 05:30 38.6 99 20 167/57 95 Nasal Cannula 1.00 07/10/16 05:26 88 Intake and Output 07/09/16 07/10/16 07/11/16 00:00 00:00 00:00 Intake Total 662 ml 0 ml Output Total 2 ml Balance 662 ml -2 ml Weight (Kilograms): 89.000 Height (Feet): 4 Height (Inches): 0.00 Test 07/08/16 22:15 07/09/16 00:35 07/10/16 07:50 Hold Purple Top Tube Received (Received) Activated Partial Thromboplast Time 35.6sec (22.8-33.0) Hold Blue Top Tube Received (Received) Lactic Acid Level 1.0mmol/L (0.4-2.0) Troponin T 0.140ug/L (0.0-0.011) Pro-B-Type Natriuretic Peptide > 73639dz/mL (0-287) Hold Red Top Tube Received (Received) Hold [place] Top Tube Received (Received) Hold Shelton Top Tube Received (Received) Urine Color Yellow (YELLOW) Urine Appearance Hazy (CLEAR,HAZY) Urine pH 6.0 (5.0-8.0) Urine Specific Bruno 1.020 (1.003-1.035) Urine Protein 30mg/dL (NEG,TRACE) Urine Glucose (UA) Negativemg/dL (NEGATIVE) Urine Ketones Tracemg/dL (NEGATIVE) Urine Occult Blood Small (NEGATIVE) Urine Nitrite Positive (NEGATIVE) Urine Bilirubin Negative (NEGATIVE) Urine Urobilinogen Normalmg/dL (NORMAL) Urine Leukocyte Esterase Small (NEGATIVE) Urine RBC 3-10/hpf (0-2) Urine WBC >50/hpf (0-5) Urine Epithelial Cells Moderate/hpf (NONE-MOD) Urine Crystals None seen (NONE SEEN) Urine Bacteria Many/hpf (NONE-FEW) Urine Hyaline Casts None/lpf (NONE) Urine Granular Casts None seen (NONE SEEN) Urine Waxy Casts None seen (NONE SEEN) Urine Red Blood Cell Casts None seen (NONE SEEN) Urine White Blood Cell Casts None seen (NONE SEEN) Urine Mucus None seen (None Seen) Urine Trichomonas None seen (NONE SEEN) Urine Yeast None (NONE SEEN) Urinalysis Comment None Urine Culture Reflexed Indicated White Blood Count 20.4th/mm3 (3.8-10.1) Red Blood Count 2.98mil/mm3 (3.90-5.20) Hemoglobin 8.2g/dL (12.0-15.6) Hematocrit 28.2% (35.0-46.0) Mean Corpuscular Volume 94.6fL (81-100) Mean Corpuscular Hemoglobin 27.5pg (27.0-35.0) Mean Corpuscular Hemoglobin Concent 29.1% (32.0-37.0) Red Cell Distribution Width 15.4% (12.3-15.4) Platelet Count 281bil/L (150-400) Neutrophils (%) (Auto) 90.3% (40-74) Lymphocytes (%) (Auto) 5.7% (14-46) Monocytes (%) (Auto) 3.5% (4-12) Eosinophils (%) (Auto) 0.2% (0-5) Basophils (%) (Auto) 0% (0-3) Prothrombin Time 40.7sec (8.1-12.5) Prothromb Time International Ratio 3.70ratio Sodium Level 142mEq/L (134-144) Potassium Level 4.6mEq/L (3.5-5.2) Chloride Level 103mEq/L (97-108) Carbon Dioxide Level 27mmol/L (18-29) Blood Urea Nitrogen 47mg/dL (8-27) Creatinine 1.91mg/dL (0.57-1.00) Estimat Glomerular Filtration Rate 38mL/min (>59) Glucose Level 101mg/dL (60-99) Calcium Level 8.3mg/dL (8.5-10.1) Magnesium Level 2.7mg/dL (1.6-2.6) Total Bilirubin 0.8mg/dL (0.0-1.2) Aspartate Amino Transf (AST/SGOT) 35U/L (0-50) Alanine Aminotransferase (ALT/SGPT) 23U/L (0-32) Alkaline Phosphatase 104U/L (25-165) Total Protein 5.9g/dL (6.4-8.4) Albumin 2.2g/dL (3.4-5.0) Assessment/Plan Assessment/Plan A: * Empiric vancomycin dosing by pharmacy for 60 y/o woman * She received vancomycin and Zosyn in the ED, was switched to ceftriaxone, and now is being switched to cefepime, Flagyl and vancomycin * The patient has acute kidney injury with a SCr of 1.91 mg/dL * Vancomycin pharmacokinetic calculations may be inaccurate due to ALIYAH P: * Giving vancomycin 1500 mg IV once * Drawing a random vancomycin level after the dose * Pharmacy to determine dosing or new level draw based on the level * Target a vancomycin trough range of 15 - 20 mcg/mL Thank you. Pharmacy will continue to follow. Neida Thapa, PharmD Neida Thapa Jul 11, 2016 01:40
[2016-07-11] MEDS ORDERED: Vancomycin Serum Level XX ONE (05:00)
--- NOTE | 2016-07-11 05:48 | NUR ---
Temp/Bp Pt oriented to self but confused most of the times. She talks of confused conversation most of the times. Temp max 38.4 and Tylenol given for comfort with some effectiveness. Noted in report of aware of HTN. SBP range 170s-180s through the night. Turn q2h. Pt noted to have intermittent, moist and loose cough. No sputum noted. 02sat staying 90-92% on 2L. Increased on 3L with 02sat in mid to high 90s. Addendum: 07/11/16 at 0634 by OCHOA TRIANA RN Mansi Ibarra made aware of HTN. Clonidine restarted and gave first dose this am.
[2016-07-11] MEDS: cloNIDine 0.1 mg Tablet PO SCH ×2 (06:28→21:14)
[2016-07-11 07:05] LABS: BASOPHILS % (AUTO) 0 % (0-3); EOSINOPHILS % (AUTO) 0 % (0-5); MONOCYTES % (AUTO) 2.2 % (4-12); Mean Corpuscular Hemoglobin 27.2 pg (27.0-35.0); Mean Corpuscular Volume 93.2 fL (81-100); NEUTROPHILS % (AUTO) 92.9 % (40-74); Platelet Count 274 bil/L (150-400)
[2016-07-11 07:17] LABS: INR 3.37 ratio
[2016-07-11 07:41] LABS: Magnesium 2.5 mg/dL (1.6-2.6); Phosphorus 3.1 mg/dL (2.5-4.9)
[2016-07-11] MEDS: ALPRAZolam 0.5 mg Tablet PO SCH ×3 (07:53→20:30)
[2016-07-11] MEDS: Pantoprazole 40 mg ER24 Tablet PO SCH (07:54)
[2016-07-11] MEDS: Furosemide 10 mg/mL 4 mL Inj IVPUSH SCH (07:55)
[2016-07-11] MEDS: Cefepime Inj 1,000 MG in Dextrose 5% Minibag Plus 50 ML IV SCH ×2 (07:56→22:30)
[2016-07-11] MEDS: metroNIDAZOLE Inj 500 MG in IV Premix 1 EACH IV SCH ×2 (07:56→20:49)
[2016-07-11] MEDS: Vancomycin Dose per Pharmacist XX SCH (08:30)
--- NOTE | 2016-07-11 09:23 | NUR ---
Social Work: Attempted Initial Assessment Data: Pt is a 60 y/o female admitted for fluid overload, UTI, renal insufficiency. Pt's PCP is Dr Flores, pt's insurance is Medicare with [facility] supp. EMR reviewed. JUNIOR LEGAL SECRETARY attempted to meet with pt. Pt unable to participated in conversation. Pt is from [facility]. JUNIOR LEGAL SECRETARY called [facility] and spoke with Evi who states they can take pt back when she is ready for d/c. JUNIOR LEGAL SECRETARY will attempt to call family member. Assessment: Pt from SNF. Plan: Pt will likely return to [facility] when medically stable for d/c, [facility] has accepted pt back. JUNIOR LEGAL SECRETARY will attempt to call family member to complete assessment. JUNIOR LEGAL SECRETARY will continue to follow. СЕРГЕЙ Adamson
--- NOTE | 2016-07-11 10:08 | DRSVH ---
PROCEDURE: X-RAY CHEST ONE VIEW, PORTABLE ([id number]) INDICATIONS: Follow up for pneumonia left lung TECHNIQUE: One view of the chest was acquired. COMPARISON: [facility], CR, XR CHEST 1VW (PORTABLE), 07/08/2016, 22:57. FINDINGS: Surgical changes and devices: None. Lungs and pleura: Interval increase in airspace opacity within the right upper lobe and the lung base s. Interstitium remains prominent. No pneumothorax. Mediastinum: Mediastinal contours appear normal. Heart size is normal. Bones and chest wall: No suspicious bony lesions. Overlying soft tissues appear unremarkable. IMPRESSION: Worsening bilateral airspace opacities suspicious for multifocal pneumonia. Mild edema c annot be excluded. Dictated by: Dean Nguyen RRA Interpreted: Justyna Dietrich MD on 07/11/2016 at 10:07 Transcribed by: DELBERT on 07/11/2016 at 10:07 Approved by: Justyna Dietrich MD, PhD on 07/11/2016 at 16:12
--- NOTE | 2016-07-11 10:34 | NUR ---
Palliative Care Palliative Care received verbal order from Dr Clark 07/11/16 to assist with goals of care. Patient is a 60 year old female with hx of pseudobulbar dementia, HTN, T2DM, CVA, DVT and PE. She was admitted 07/09/16 due to increasing SOB. Patient resides at [facility]. Federico Diez (son) [phone] Palliative Care unable to see patient today due to caseload. Palliative Care will see patient (if still in hospital) next week after the holiday on Thursday07/15/16. Crys Garcia
--- NOTE | 2016-07-11 14:16 | NUR ---
Social Work: Brief Note GLOBAL CONSUMER SECTOR VICE PRESIDENT called pt's son, Federico to conduct assessment at [phone], no answer. GLOBAL CONSUMER SECTOR VICE PRESIDENT left a message for him to call back. GLOBAL CONSUMER SECTOR VICE PRESIDENT checked other contacts, no others are listed. СЕРГЕЙ Adamson
--- NOTE | 2016-07-11 15:05 | PCM.CONPAL ---
Date of Service Jul 11, 2016 Date of Hospital Admission: Jul 09, 2016 at 02:33 Date of Palliative Consult: Jul 11, 2016 Requesting Provider: Patrick Clark MD Reason Palliative Care Consult: Goals of Care Discussion Hospital Unit @time of consult: Medical/Pediatric Care Palliative Care Recommendation This is a 60 yr old who appears older than her stated age, with a history of admitted with sepsis, now with ongoing leukocytosis, possible high risk infectious involvement. The patient is not in her room for this consultation which consisted of a conversation with her son in [place] regarding her goals. See discussion section re: this conversation per son. Dr. Clark is aware of this conversation and will keep the son posted as to his recommendations. Pt returned to room after conversation but not able to answer questions. Summary of palliative recommendations: -DPOA/Advanced Directives/POLST: confirmed that patient's current POLST: DNR/DNI , limited interventions reflects her current wishes. If her condition appears to be complicated, requiring invasive interventions, she would likely want to forego intervetions and have comfort-focused care. -Family/emotional support: d/w son of above--will provide support as needed. Patient Goals: 1. Patient wants to be told the truth about his/her illness, even if it is unpleasant. 2. Patient would like to be told prognosis when it can be predicted, to better guide treatment decisions. 3. Patient would choose quality of life over quantity of life, and defines quality as able to interact with family. 4. Patient would request that comfort care take priority over cognitive/mental confusion. Additional Medical Diagnoses with primary management by Hospitalist team include : Problems: End of Life Preferences may prefer to be in placement near family in [place] Goals of Care treat treatable conditions if QOL is maintained, no life-prolonging measure if condition is ultimately not survivable. Disposition [facility] will accept patient back for LTC. Family unable to provide in home support. Resuscitation Status Resuscitation Status: DNR/DNI:Do Not Resuscitate/Intubate POLST Updates/Changes Previous POLST?: Yes Antibiotics: Determine Use or Limitations Artificially Admin Nutrition: No Artifical Nutrition by Tube POLST Discussed with: Patient POLST Review Outcome: No Change . Advanced Care Planning Address: POLST Pain: Moderate Symptom management: Drowsiness/sleepiness Pt History History of Present Illness Pt is a 60 y/o female who resides at [facility] w/ a hx of pseudobulbar dementia, HTN, T2DM diet controlled, CVA on warfarin, DVT, PE, who presented to the ED via EMS due to increasing SOB onset today. She is [facility] from her [facility] with concern for pneumonia and fluid overload. She c/o left chest, left back, and left abdominal pain. There is no documented history of CHF in the [facility] documentation nor in [facility]. Patient is demented but she did know that she takes Dilaudid TID and would like to make sure that she gets her pain medication. In light of her increasingly concerning leukocytosis, and poor prognosis, palliative care is asked to help intervene with her family, to make sure that they are aware of her condition. At the request of Dr. Clark, a phone call was placed to Federico Tran in [place], the patient's son. He was aware of his mother's hospitalization and that her condition is tenuous. Past Medical History Significant PMH Noted: extensive list of medical conditions/issues; Per H&P by Dr. Fuentes: Essential HTN Diabetes type 2, diet controlled Hx of right BKA, left above the knee amputation depression chronic pain pseudobulbar palsy dependent edema left stump anxiety low back pain with sciatica PVD Hx of encephalopathy Chronic DVT of LE GERD Hyperlipidemia H/O ischemic multifocal multiple vascular territories stroke Stomatitis Anemia of chronic illness Hx thoracic spine surgery Hx stroke right shoulder surgery cataract surgery Surgical History See above Family History family history of stroke family history of CAD lung cancer in father suicide in mother Social History Hx Alcohol Use: No Hx Substance Use: No Hx Tobacco Use: No Smoking Status: Never Smoker Living Arrangement: Care Home Facility ([facility]) Essential HTN Diabetes type 2, diet controlled Hx of right BKA, left above the knee amputation depression chronic pain pseudobulbar palsy dependent edema left stump anxiety low back pain with sciatica PVD Hx of encephalopathy Chronic DVT of LE GERD Hyperlipidemia H/O ischemic multifocal multiple vascular territories stroke Stomatitis Anemia of chronic illness Hx thoracic spine surgery Hx stroke right shoulder surgery cataract surgery Surgical History See above Family History family history of stroke family history of CAD lung cancer in father suicide in mother Social History Hx Alcohol Use: No Hx Substance Use: No Hx Tobacco Use: No Smoking Status: Never Smoker Living Arrangement: Care Home Facility ([facility]) Social History Occupation: pt was a nurse Family Members Issues: complicated medical course over the last year+ post amputations led to the patient being placed in a [facility] facility, far from her family [place]. They visit as often as possible but her son runs a construction crew and rarely gets more than one day off. He expresses love for his mother and a clear understanding that she would not want her life prolonged as her quality of life is declining. Social Support: very little local support, lives at SNF. Non-Responsive Patient Symptom Pain (current): NOT Present Pain (minimum): NOT Present Tiredness/Fatigue: Present, Not Requiring Intervention Anorexia: Present, Not Requiring Intervention Delirium at risk for hypo-active delirium. Allergy Allergies Reviewed: Yes Medications Current Medications: Current Medications Pharmacy Consult 1 ea DAILY@17 XX; Start 07/09/16 at 17:00 Pantoprazole 40 mg DAILYAC PO Last administered on 07/11/16 07:54; Admin Dose 40 MG; Start 07/10/16 at 07:30 Pharmacy Consult 1 ea 1 ea DAILY XX Last administered on 07/10/16at 21:45; Admin Dose 1 EA; Start 07/10/16 at 21:45 Cefepime HCl 1000 mg/Dextrose/Water 50 ml @ 12.5 mls/hr Q12 IV Last administered on 07/11/16 07:56; Admin Dose 12.5 MLS/HR; Start 07/10/16 at 21: 45 Metronidazole/ Sodium Chloride/ Premix 100 ml @ 200 mls/hr Q12 IV Last administered on 07/11/16 07:56; Admin Dose 200 MLS/HR; Start 07/10/16 at 21: 45 Furosemide 40 mg DAILY IVPUSH Last administered on 07/11/16 07:55; Admin Dose 40 MG; Start 07/11/16 at 08:30 Clonidine 0.1 mg BID PO Last administered on 07/11/16at 06:28; Admin Dose 0.1 MG ; Start 07/11/16 at 06:22 Scheduled Ascorbic Acid (Vitamin C) 250 Mg Tab.chew 250 MG PO DAILY Atorvastatin Calcium (Atorvastatin Calcium) 10 Mg Tablet 5 MG PO HS Budesonide EC (Budesonide EC) 3 Mg Capsule 9 MG PO QAM Cholecalciferol (Vitamin D3) (Vitamin D3) 50,000 Unit Capsule 50,000 UNIT PO Q Thursday Clonidine (Clonidine) 0.1 Mg Tablet 0.2 MG PO TID Diphenoxylate/Atropine (Diphenoxylate-Atrop 2.5-0.025) 2.5 Mg Tablet 1 EACH PO TID Doxazosin Mesylate (Doxazosin Mesylate) 2 Mg Tablet 2 MG PO TID Famotidine (Famotidine) 20 Mg Tablet 20 MG PO DAILY Fenofibrate Nanocrystallized (Fenofibrate) 145 Mg Tablet 145 MG PO QPM Fentanyl 25 mcg/hr Patch (Fentanyl 25 mcg/hr Patch) 1 Each Patch.td72 25 MCG TOPICAL Q3 Days Ferrous Sulfate (Iron) 325 Mg Tablet 325 MG PO DAILY Fluconazole (Fluconazole) 200 Mg Tablet 200 MG PO DAILY Folic Acid (Folic Acid) 1 Mg Tablet 1 MG PO DAILY Furosemide (Furosemide) 40 Mg Tablet 40 MG PO MWF Gabapentin (Gabapentin) 100 Mg Capsule 200 MG PO BID Labetalol (Labetalol) 200 Mg Tablet 400 MG PO TID hold for SBP<120 or HR<60 Lactobacillus Rhamnosus GG (Culturelle) 1 Each Capsule 1 EACH PO BID Levothyroxine (Levothyroxine) 50 Mcg Tablet 50 MCG PO QPM Loperamide (Loperamide) 2 Mg Capsule 4 MG PO QID Magnesium Oxide (Magnesium Oxide) 400 Mg Tablet 800 MG PO BID Multivitamin with Minerals (Myvitalife) 1 Each Capsule 1 EACH PO DAILY Simethicone (Gas-X) 80 Mg Tablet 80 MG PO QID Trazodone (Trazodone) 150 Mg Tablet 150 MG PO HS Triamcinolone Acetonide (Triamcinolone Acetonide) 60 Ml Lotion 1 APPLIC TOPICAL BID Venlafaxine ER (Venlafaxine ER) 150 Mg Cap.er.24h 150 MG PO QAM Scheduled PRN Acetaminophen (Acetaminophen) 325 Mg Tablet 1-2 EACH PO Q4H PRN PRN For Pain Alprazolam (Alprazolam) 0.25 Mg Tablet 0.25 MG PO BID PRN PRN For Anxiety or Agitation Bisacodyl (Dulcolax Rectal) 10 Mg Supp.rect 10 MG RC ONCE PRN PRN For Constipation if no BM x 12 shifts Clonidine (Clonidine) 0.1 Mg Tablet 0.1 MG PO QID PRN PRN For HYPERtension for SBP>170 or DBP>90 Hydromorphone (Hydromorphone) 4 Mg Tablet 4-8 MG PO Q3H PRN PRN For Pain Magnesium Hydroxide (Milk of Magnesia) 400 Mg/5 Ml Oral.susp 30 ML PO ONCE PRN PRN For Constipation if no BMx9 shifts Na Phos,M-B/Na Phos,Di-Ba (Fleet Enema) 133 Ml Enema 133 ML RC ONCE PRN PRN For Constipation if no BM x 15 shifts Sucralfate (Sucralfate) 1 Gm Tablet 1 GM PO BID PRN PRN proctitis oxyCODONE (oxyCODONE) 5 Mg Tablet 5-10 MG PO Q3H PRN PRN For Pain Objective Findings Exam Vital Sign - Last Date Time Temp Pulse Resp B/P Pulse Ox O2 Delivery O2 Flow Rate FiO2 07/11/16 14:18 37.8 99 18 133/80 93 Nasal Cannula 3.00 Intake and Output 07/10/16 07/10/16 07/11/16 Cumulative From/Thru 15:00 23:00 07:00 07/08/16 22:05 - 07/11/16 06:42 Intake Total 0 ml 0 ml 603 ml 1265 ml Output Total 2 ml 2 ml 4 ml Balance 0 ml -2 ml 601 ml 1261 ml Intake Oral 0 ml 0 ml 0 ml 0 ml IV Total 603 ml 1265 ml Output Urine Total 2 ml 2 ml 4 ml # Voids 2 5 # Bowel Movements 0 1 Objective limited exam. Pt opens eyes to voice but no verbal response normocephalic, Right BKA. Left AKA as noted in history. no evidence of pain at this time. General: Minimally responsive HEENT: Atraumatic, EOMI Heart: Exam Unremarkable Lungs: Diminished Abdomen: Soft Neuro: Arousable (confused speech at times, no verbal response at other times.) Extremities: Other (b/l amputations) Lab/Diagnostics Lab and Imaging results reviewed in detail in EMR. Patient/Family Conference Members Present Family Members Present pt in room, not able to respond. Son Federico Diez via TC Discussion/Goals of Care Discussion FAMILY UNDERSTANDING OF DISEASE: [Son is not surprised to hear that she is really sick, he understands that her history puts her at risk. He does however note that she was doing "pretty good" up to 6 months ago. DISEASE PROGRESSION/EVIDENCE OF DECLINE/SYMPTOM BURDEN: [gradual decline mentally with the SB palsy dementia, as well as physically s/p bilateral LE amputations. GOALS: [ She has talked with him extensively about what her choices would be for life-prolonging care and he feels that her current POLST stating DNR/DNI with limited interventions reflects her current wishes. He states that she would not want to have her life prolonged if she could not return to her prior quality of life, which they all agree is diminishing with the progression of her underlying diseases.] HOPES/WORRIES: [The family consists of her one son, Federico, and one brother, both in [place]. They are struggling to stay connected and supportive from a distance. Her prior history is all in [place] but she had filed a complaint against a rolled materials worker and then was unable to find a facility that would offer her placement. Eventually she was able to have rehab care at [facility] in [place], who then facilitated her finding placement at [facility]. Federico states that he and his are not equipped to provide care for her in their home at all. They will make the trip out here to visit but not if she "isn't going to be able to interact". CM is aware of this. Palliative Care counselled: anticipatory guidance for possible high level medical decision-making regarding patient who has guarded prognosis. Time spent Total time 60minutes; >50% face to face with patient and/or family, providing counselling regarding plans and recommendations, and in care coordination with his/her medical teams. Of this 25 minutes is spent counseling for advanced care planning with the patient/the patients family/the surrogate decision maker. copies to: Lizbeth Flores MD, Sharmon M. [facility] Jul 11, 2016 15:05
--- NOTE | 2016-07-11 15:05 | PCM.PHAPRO ---
Progress VANCOMYCIN PER PHARMACY A: - Trough was drawn @ 0500 on 07/11/16 and came back at 28.7 P: - With current ALIYAH, pt may take longer to clear vancomycin - Will draw another trough 07/12/16 @0500 - Pharmacy will continue to follow and monitor as appropriate Arcelia Feldman PharmD Jul 11, 2016 15:05
--- NOTE | 2016-07-11 15:17 | NUR ---
NUTRITION ASSESSMENT: ASSESS: 60YO F admit with SOB, likely new CHF, UTI, ALIYAH--fluid overload. Pt with poor prognosis, palliative care involved with notes indicating pt wishes of no nutrition support, DNR/DNI limited interventions. Pt is pleasantly confused. PMHX: HTN,DMII,CVA,DVT,PE, hyperlipidemia, BKA,AKA LABS: Reviewed. A1c 4.5 (06/25/16), Glu 162, Alb 2.0, Cr 1.84, BUN 44 MEDS: Reviewed. GI:1 BM 07/09 SKIN: Ajit 12; no pressure injuries per multimedia journalist notes CURRENT WTS: 89.0kg, BMI 59.9 DIET: Stimulation. PO 25% EST. NEEDS: OBESITY/BKA/AKA (-21.9%) Kcals: 1400-1540kcal (20-22kcal/ABW) Pro: 55-70g/day (0.8-1.0g/kg ABW) NUTRITION DIAGNOSIS: 1.) Chew/swallowing difficulty related to decreased cognition as evidenced by modified diet texture per ST. NUTRITION INTERVENTION: 1.) Continue current diet. Will include supplements. MONITOR / EVAL: PO, labs, texture tolerance. Will continue to monitor per moderate nutrition risk guidelines
--- NOTE | 2016-07-11 15:32 | NUR ---
Temp Pt febrile 38.3, gave Tylenol 975 mg and cold compress. Will continue to monitor.
--- NOTE | 2016-07-11 15:38 | NUR ---
JOSE G signed Verbal consent to sign by pt's son over phone. СЕРГЕЙ Adamson
--- NOTE | 2016-07-11 15:39 | NUR ---
Social Work: Initial Assessment Data: Pt is a 60 y/o female admitted for fluid overload, UTI, renal insufficiency. Pt's PCP is Dr Flores, pt's insurance is medicare with [facility] supp. EMR reviewed. DRIVE IN TELLER called pt's son for assessment due to pt having dementia. Pt's son states that pt lives at [facility] and was previously at [place]. Pt's son states that she has no legs and therefore no DME needed. He states pt has no history with , no LTC insurance, no VA benefits, and is not a caregiver for another. [facility] previously stated they can take pt back at d/c. Pt's son is agreeable to this. Assessment: Pt from [facility]. Plan: Pt will d/c back to [facility] at d/c. DRIVE IN TELLER will continue to follow. СЕРГЕЙ Adamson Addendum: 07/11/16 at 1543 by VERENICE CARRINGTON Amended: Links added.
--- NOTE | 2016-07-11 15:49 | DRSVH ---
PROCEDURE: CT CHEST, ABDOMEN AND PELVIS WITHOUT CONTRAST ([id number]) INDICATIONS: Fever, Marked Leukocytosis,Possible Abscess TECHNIQUE: After the administration of oral contrast, 5 mm thick sections acquired from the lung apices to the s ymphysis pubis. 5 mm thick coronal and sagittal reformats acquired, with additional 7 mm coronal MIP reformats through the lungs. For radiation dose reduction, the following was used: automated expos ure control, adjustment of mA and/or kV according to patient size. COMPARISON: [facility], CR, XR CHEST 1VW (PORTABLE), 07/08/2016, 22:57. [facility], CR, XR CHEST 1VW (PORTABLE), 07/10/2016, 21:51. FINDINGS: Image quality: Excellent. CHEST: Lungs and pleura: Bilateral patchy infiltrates and consolidations consistent with pneumonia. There ar e small bilateral pleural effusions. No pneumothorax. Central and peripheral airways are patent are normal in caliber. Mediastinum: Heart size is normal. No pericardial effusion. No mediastinal adenopathy by CT size c riteria. Thoracic aorta and central pulmonary arteries are normal in size. Esophagus is normal in c aliber. No hiatal hernia. Chest wall: No axillary or supraclavicular adenopathy by size criteria. Thyroid gland contains a sm all 6 mm hypodense nodule in the right lower lobe. ABDOMEN: Solid organs: Liver and spleen are normal in size. Gallbladder is distended. No opaque gallstones. Pancreas is normal in contours. There is a 1.3 cm left adrenal nodule. Right adrenal is normal. Bot h kidneys are normal in size, without hydronephrosis or nephrolithiasis. Peritoneum and bowel: There is a large amount of stool in rectum which is distended measuring 8.6 cm in diameter. Small bowel loops are normal in caliber and wall thickness. No free air. There is a s mall amount of free fluid. No organized fluid collections. Nodes and vessels: No retroperitoneal or mesenteric adenopathy by size criteria. Aorta and inferior vena cava are normal in size. Miscellaneous: Small fat-containing umbilical hernia is noted. Mild diffuse moderate edema. PELVIS: Genitourinary: Bladder wall thickness is normal. Miscellaneous: No inguinal hernias or adenopathy. Bones: No suspicious bony lesions. Scoliosis and degenerative changes in thoracic and lumbar spine. No vertebral body compression fractures. IMPRESSION: 1. Bilateral pneumonia. 2. No intra-abdominal abscess. 3. Distended gallbladder. No gallstones. 4. A 1.3 cm left adrenal nodule. 5. A large amount of stool in rectum. The result was discussed with prior to dictation. Dictated by: Linda aLmbert M.D. on 07/11/2016 at 15:47 Approved by: Linda Lambert M.D. on 07/11/2016 at 15:47
[2016-07-11] MEDS ORDERED: DOXYCYCLINE PO SCH (16:30)
--- NOTE | 2016-07-11 18:11 | DRSVH ---
PROCEDURE: US VENOUS ARM DUPLEX UNILATERAL, LEFT INDICATIONS: R/O LUE DVT TECHNIQUE: Real-time imaging, as well as color and pulse Doppler interrogation, was performed of the left upper extremity deep veins from the inferior neck to the antecubital fossa. COMPARISON: None. FINDINGS: The internal jugular vein, visualized portions of the subclavian vein, axillary, and brach ial veins are free of intraluminal thrombus. Where physically possible, the veins are normally compr essible. Color and pulse Doppler demonstrate normal intraluminal flow, with expected phasicity and p ulsatility. Additional scanning of the cephalic and basilic veins of the superficial system demonstr ate normal compressibility, without thrombus. IMPRESSION: No evidence of thrombosis involving the left upper extremity. Dictated by: Justyna Dietrich MD, PhD on 07/11/2016 at 18:10 Approved by: Justyna Dietrich MD, PhD on 07/11/2016 at 18:10
--- NOTE | 2016-07-11 20:32 | CONS ---
[address] [address] CONSULTATION REPORT PATIENT: ALVARADO NEAL : 1955 MR#: [id number] ADMIT: 07/09/2016 JOB ID: [id number] INFECTIOUS DISEASE CONSULTATION: DATE OF SERVICE: 07/11/[address] Clark for this timely consult. REASON FOR CONSULTATION: Unexplained leukocytosis in a senior care patient. HISTORY OF THE PRESENT ILLNESS: The patient is an extraordinarily unfortunate 60-year-old woman who currently resides at the [facility] in [place]. She has been a long-time resident there because she has dementia with pseudobulbar features as well as history of CVA, pulmonary embolism and peripheral vascular disease. 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 The patient was transferred to this facility late on July 08 because of increasing shortness of breath over her baseline. It was felt at least some of her shortness of breath was due to some newly diagnosed congestive heart failure but the patient also was noted to have a leukocytosis as well as fevers which has prompted an Infectious Disease evaluation. Urine has grown E. coli, but despite appropriate therapy, her white count is still increasing and for this reason ID was consulted. The patient is demented and not able to offer much in the way of history. When asked what is bothering her, she basically just reports that she has back pain which apparently is one of her many chronic medical problems. The patient essentially denies all symptoms but does not seem completely lucid and her answers are often inappropriate. It remains unclear whether not she is even oriented to person or place. PAST MEDICAL HISTORY: 1. Dementia with pseudobulbar features. 2. History of CVA. 3. History of DVT with PE. 4. History of depression. 5. Peripheral vascular disease. 6. Status post right BKA. 7. Status post left AKA. SOCIAL HISTORY: The patient lives at the [facility]. She neither drinks nor smokes. FAMILY HISTORY: Unobtainable. REVIEW OF SYSTEMS: Basically unobtainable. When asked questions, the patient occasionally offers one word responses but these do not really correspond to the question asked. PHYSICAL EXAMINATION: Reveals a lethargic woman who arouses to touch but does not clearly interact or answer questions in a way that is useful for history taking. The patient's temperature has ranged from afebrile when she was admitted, up to a high of 38.6 late last night. Current temperature is 38.4, pulse 100, respiratory rate 18, blood pressure 133/80, saturating fairly well on 3 L. Eyes without conjunctivitis or scleral icterus. Oral cavity: Dry membranes. No thrush or pharyngitis. Neck without adenopathy. Lungs: Not great respiratory excursion, maybe a few crackles at the bases but nothing definitive. Cardiac tones: Regular rate and rhythm with tachycardia. No murmur appreciated. Abdomen seems soft and nontender. No Rodrigues catheter is present. The patient uses diapers. The patient has a right BKA and left AKA. The stumps are well healed and without cellulitis. The nurse has recently rolled over the patient and examined her and states that there is no evidence of skin breakdown. The patient's left arm is swollen as compared to the right arm and there is generalized warmth and edema from the elbow to the wrist, though no really focal area of fluctuance is noted. LABORATORIES: Include white count 24,000 and that is increased from 10,000 when she was admitted. Diff shows 93% segs. Creatinine 1.84. LFTs are normal. Procalcitonin 0.77; that is our first and only measurement so far. Urinalysis packed with white cells, greater than 50. Urine culture grew E. coli quite susceptible to standard antibiotics though completely resistant to quinolones and ampicillin but susceptible to everything else. IMAGING: Includes a chest, abdomen and pelvis CT scan which shows bilateral patchy infiltrates. No intra-abdominal abscess and a large amount of stool within the colon up to almost 9 cm. IMPRESSION: This is an unfortunate woman who at a very young age is demented secondary to progressive neurologic disease, who also has a peripheral vascular disease; has already lost both of her legs and been institutionalized. She now presents with shortness of breath, fever and leukocytosis. She has some degree of congestive heart failure as manifested by very high BNP, but her labs and fever would suggest there is also an underlying systemic infection. This could be secondary to urinary tract infection as she had heavy pyuria and grew E. coli, but so far she has not responded swiftly at least to treatment for the E. coli urinary tract infection. Imaging shows bilateral lower lobe infiltrates that certainly could be the cause of her fever and white count. If so, these are health-care associated because she has been confined at [place] for quite some time. A third and probably less likely cause of some of this would be possible deep vein thrombosis in her left upper extremity. RECOMMENDATIONS: 1. An ultrasound of the left upper extremity will be done to rule out DVT. 2. Will change the antibiotics from vanc, cefepime and Flagyl to doxycycline, cefepime and Flagyl. 3. Note that the patient's MRSA screen is negative; I think MRSA is unlikely and even if it were present, she would have some coverage with the doxy. 4. Will continue to follow this complex patient with you. Thank you very much for the consult.
--- NOTE | 2016-07-11 22:07 | PCM.PNMED ---
Subjective Date of Service Jul 11, 2016 Subjective Patient is more alert today and more conversive. She is wanting to drink water. She has no other new complaints. Exam Vital Signs Vital Sign - Last Date Time Temp Pulse Resp B/P Pulse Ox O2 Delivery O2 Flow Rate FiO2 07/11/16 16:26 38.4 98 17 158/92 97 Nasal Cannula 3.00 Intake and Output 07/10/16 07/10/16 07/11/16 Cumulative From/Thru 14:59 22:59 06:59 07/08/16 22:05 - 07/11/16 06:42 Intake Total 0 ml 0 ml 603 ml 1265 ml Output Total 2 ml 2 ml 4 ml Balance 0 ml -2 ml 601 ml 1261 ml Intake Oral 0 ml 0 ml 0 ml 0 ml IV Total 603 ml 1265 ml Output Urine Total 2 ml 2 ml 4 ml # Voids 2 5 # Bowel Movements 0 1 Exam General: Patient is resting comfortably on her back. She is more alert and responsive today than yesterday. She is more conversive than she was yesterday. HEENT: Head is atraumatic normocephalic. Eyes: Pupils are equally round and reactive to light and accommodation. Extraocular muscles are intact. Sclera are white anicteric. Subconjunctival mucosa is pink. Ears and nose are unremarkable. Oropharynx: There is no mucosal lesions, there is no thrush, there is no pharyngitis. However, her mucosa is somewhat dry. Neck: Is supple, there are no nodes, or masses or tenderness. Chest: Is negative for increased rales and a few scattered rhonchi Heart: Rate, rhythm is regular. There is no new murmur, rub or gallop. Abdomen: Good bowel sounds are present. Abdomen is obese, soft, nontender, no organomegaly or masses were appreciated. Extremities: Left upper extremity edema has improved significantly. There is still extensive ecchymosis of the left upper extremity unchanged from admission. There is blotchy ecchymosis 4/focal bruising on the right upper extremity There is no cellulitis, no rash evident. Neurologic: There are no focal neurological deficits. Cranial nerves II through XII are intact. There are no sensory or motor deficits. Patient is pleasantly confused. However, she is much more alert and conversive than she was yesterday. Psychiatric: Patients mood is calm and shows no sign of agitation. Genital: Deferred Rectal: Deferred Lab and Diagnostics Result Diagram: 07/11/1662407/11/16624 Microbiology Name: ALVARADO NEAL Age/Sex: 60/F Attend Dr: MARGUERITE,ED Acct: [id number] Unit: [id number] Status: REG ER Location: SED Re07/08/16 Disch: Specimen: [id number] Collected: 07/08/16 Status: COMP Req#: [id number] Received: 07/08/16 Source: NOSE Sp Desc : Subm Dr: MARGUERITE,SARAH WOO Ordered: RAPID FLU IRS Comments: Collected by Nurse/Unit? Y/N Y Procedure Result Verified Site Microbiology [facility] INFLUENZA RAPID AG SCREEN Final 07/08/16-2301 RESULT NEGATIVE FOR INFLUENZA TYPE A AND B This rapid assay is a screen test only for Influenza A&B and does not definitively rule out the presence of FLU A & B or other respiratory viral pathogens. The assay's sensitivity varies on the specimen type submitted. Nasal washes are optimum. Recommend respiratory viral cultures and DFA to confirm negative screens and rule out other viral pathogens. Per CDC, the sensitivity of this method is approximately 50% for H1N1. A negative result does NOT rule out Novel H1N1 (Swine Flu) Name: ALVARADO NEAL Arianna Age/Sex: 60/F Attend Dr: Patrick Clark Acct: [id number] Unit: [id number] Status: ADM IN Location: [facility] 3023-1 Re07/09/16 Disch: Specimen: [id number] Collected: 07/09/16 Status: RES Chilo#: [id number] Received: 07/09/16 Source: RANDOM Sp Desc : Subm Dr: DOC,ED Ordered: URINE CULT Procedure Result Verified Site Microbiology ANKIT CULT URINE Preliminary 07/10/16 PRELIMINARY ID GRAM NEGATIVE AG ID AND SENS TO FOLLOW COLONY COUNT/QUANTITY >100,000 CFU/ml X-Rays, CTs and MRIs Chest Xray Interpretation: Infiltrate including the left lung. Low lung volumes bilaterally. CHF. View: Portable, 1 view Interpretation / Wet Read by: Wet read ED physician 12-lead ECG ECG Interpretation: Normal sinus rhythm rate 77 Flattened T waves in III, AvR, AvL Time: 23:15 Interpreted by: ED physician Normal ECG Interpretation: No acute ischemic changes Cardiac Echo Impressions Echocardiogram Report Name: ALVARADO NEAL Study Date: 07/10/2016 Height: 48 in Hospital Exam Location: [facility] Weight: 196 lb Gender: Female BSA: 1.6 m2 : 1955 Age: 60 yrs BP: 167/57 mmHg Reason For Study: SOB, Fluid overload Ordering Physician: Beronica Fuentes Performed By: Zhanna Neil Referring Physician: Dr. Pb Flores Interpretation Summary Left ventricular systolic function is low normal with the ejection fraction is estimated to be 55-60%. There is a flattened septum that is consistent with a right ventricular pressure overload state but there are no other obvious focal wall motion abnormalities. Left ventricular wall thickness is at the upper limits of normal with diastolic parameters suggesting a pseudonormalization pattern, consistent with elevated filling pressures. The right ventricle is moderately dilated and right ventricular systolic function is moderately reduced. Right ventricular systolic pressure is estimated to be at least 47 mmHg plus the clinically estimated CVP which cannot be estimated on this exam. The left atrium is severely dilated and the right atrium is moderately dilated. There is mild mitral regurgitation and mild tricuspid regurgitation but no other significant valvular heart disease. The ascending aorta is mildly enlarged. Assessment & Plan Pt is a 60 y/o female who resides at [facility] w/ a hx of pseudobulbar dementia, HTN, T2DM diet controlled, CVA on warfarin, DVT, PE, who presented to the ED via EMS due to increasing SOB onset today. # Shortness of breath, appears to be due to HCAP and congestive heart failure, present on admission, acute and ongoing - Patient's outpatient records have no indication of past CHF diagnosis - x-ray has cephalization pattern - ProBNP is 70,000 (in setting of kidney failure, this is still high) - Crackles heard on auscultation B/L - Echocardiogram complete (see report above) - Considered pneumonia initially, however patient was afebrile, x-ray shows CHF- like picture, lactic acid normal, WBC only 10.5 but does have left shift. Initially CHF was considered more likely than pneumonia. However, now patient white blood cell count is over 20,000 - Vanco and Zosyn given in the ED x1. Because of the nephrotoxicity and the clinical picture of CHF, not pneumonia, Vancomycin and Zosyn. Were discontinued. However due to the left shift on the CBC differential on admission and now white blood cell count over 20,000 would recommend restarting vancomycin IV and instead of Zosyn and cefepime 2 g IV every 12 hours and Flagyl 500 mg IV every 12 hours. These were started on 07/10/2016. Meanwhile will discontinue ceftriaxone. -Dr. Cortes was consulted for infectious disease and substituted doxycycline for vancomycin as the MRSA screen was negative. - Patient was prescribed Augmentin 7 days ago in the outpatient. Unknown duration or what it was treating. - Influenza negative - Furosemide 40mg IV ordered x1. We will continue daily for now. Will restart in a.m. # Urinary tract infection, present on admission, acute secondary to Escherichia coli sensitive to ceftriaxone and cefepime - Pt received vanco and Zosyn in the ED. This was changed to ceftriaxone. However, due to the marked elevation in white blood cell count and expansion of Vancomycin cefepime and Flagyl will discontinue ceftriaxone. - Urine culture shows greater than 100,000 colonies per milliliter of Escherichia coli sensitive to ceftriaxone and cefepime. # Acute kidney injury, present on admission - On admission BUN of 53; Creatinine 2.18. on 06/25/16 outpatient: BUN was 36 and Creatinine was 2.04. On 10/2015 BUN was 31, creatinine 0.91. -Today the renal function has improved and the BUN is 44 and creatinine 1.84 - Patient has fluid overload at this time. Need to withhold fluids. - No sodium/potassium abnormalities - Will monitor and if no improvement will consider nephrology consultation. # Diabetes type 2 not on medication, present on admission, chronic - A1c was 4.5 taken 06/25/16 (seen on review of outpatient records). A1c decrease likely from kidney disease # History of CVA, present on admission, chronic - anticoagulated on warfarin - supratherapeutic INR of 3.75 - warfarin per pharmacy # Chronic low back pain, present on admission - Patient has opiate habituation. It was the one thing that she asked me to continue -- her Dilaudid TID. Will continue Other chronic conditions present on admission: Morbid obesity Essential HTN Hx of right BKA, left above the knee amputation depression chronic pain pseudobulbar palsy dependent edema left stump anxiety low back pain with sciatica PVD Hx of encephalopathy Chronic DVT of [place]ER[place] Hyperlipidemia H/O ischemic multifocal multiple vascular territories stroke Stomatitis Anemia of chronic illness Hx thoracic spine surgery Hx stroke right shoulder surgery cataract surgery - Acetaminophen as needed for mild pain/fever/headache - Bowel regimen as needed - Antiemetic as needed -Due to patient's numerous medical problems as listed above and current poor condition I have consulted palliative care and spoke with Mauri at length, who has spoken to the patient's son at length, about the patient's care. CODE STATUS: DNR/DNI Pain Evaluation: Adequate Pain Control GI Prophylaxis: H2 quinn VTE Prophylaxis: Theraputic Anticoag with Warfarin Resuscitation Status: DNR/DNI:Do Not Resuscitate/Intubate Patrick Clark MD Jul 11, 2016 22:07
[2016-07-12] VITALS (8 sets, daily range): BP systolic 139–180; BP diastolic 78–96; PULSE 79–105; RESP 19–21; O2SAT 92–99
--- NOTE | 2016-07-12 03:32 | NUR ---
Temp/Refusal of care Patient Temp elevated 100.4F axillary patient medicated with 975mg of Tylenol. Temp remained 100F axillary 1 hour later. patient given cold compress. Held HS xanax for increased drowsiness. Patient refused vitals and position changes. Re approached patient later and she agreed to let us change and reposition her. patient slept most the night, arouses easily to voice, vitals stable. will continue to monitor.
[2016-07-12] MEDS ORDERED: Vancomycin Serum Trough XX ONE (05:00)
[2016-07-12] MEDS: Pantoprazole 40 mg ER24 Tablet PO SCH (07:30)
[2016-07-12] MEDS ORDERED: 0.9% Sodium Chloride 250 ML ONE (09:12)
[2016-07-12] MEDS: ALPRAZolam 0.5 mg Tablet PO SCH ×3 (09:15→19:16)
[2016-07-12] MEDS: Furosemide 10 mg/mL 4 mL Inj IVPUSH SCH (09:17)
[2016-07-12] MEDS: cloNIDine 0.1 mg Tablet PO SCH (09:17)
[2016-07-12] MEDS: metroNIDAZOLE Inj 500 MG in IV Premix 1 EACH IV SCH ×2 (09:18→19:26)
[2016-07-12] MEDS: Cefepime Inj 1,000 MG in Dextrose 5% Minibag Plus 50 ML IV SCH (10:42)
--- NOTE | 2016-07-12 10:51 | PROG NOTE ---
[address] [address] PROGRESS NOTE PATIENT: ALVARADO NEAL : 1955 MR#: [id number] ADMIT: 07/09/2016 JOB ID: [id number] DATE: 07/12/2016 INFECTIOUS DISEASE FOLLOW UP NOTE: REASON FOR FOLLOW UP: Leukocytosis in a group home facility patient with possible underlying pulmonary infection. INTERVAL HISTORY: Overnight, the patient has been stable. The patient suffers from underlying dementia and is not much of a historian but she does respond that she has no current complaints and denies fever or chills. PHYSICAL EXAMINATION: Reveals a calm woman in no acute distress. Temperature 38.5, pulse 100, respiratory rate 19, blood pressure 168/92. She is saturating well on 3 L. Eyes and oral cavity without change. Lungs with a few crackles at the bases, not especially good inspiratory effort. Abdomen is benign. LABORATORIES: Include white count 24,000 yesterday, not repeated today. Creatinine was 184 yesterday, not repeated today. Procalcitonin 0.77 yesterday. Cultures remained essentially negative except for the urine which grew E coli. A MRSA screen, blood cultures, and respiratory viral panel negative. IMAGING: The ultrasound we had ordered yesterday of the left upper extremity was benign and no clot was seen. The CT chest, abdomen and pelvis to investigate her high white count and fever showed bilateral pulmonary infiltrates with very little going on in the abdomen except stool distention. IMPRESSION: This patient looks quite well despite her continued fever and leukocytosis. I suspect that there is a pulmonary source for these fevers and that her fever and leukocytosis will respond in time with antibiotics. RECOMMENDATIONS: Will continue with our current antibiotics which are quite broad and aimed at both atypical and aspiration and nosocomial aspiration pathogens. Current antibiotics are Flagyl, doxycycline and cefepime.
--- NOTE | 2016-07-12 10:56 | NUR ---
PO Medications Pt. unable to tolerate PO intake. Notified by TOWER TECHNICIAN that pt. started coughing after attempting to eat stimulation diet for breakfast. Pt having difficulty swallowing PO medications crushed in pudding. ST at bedside and attempted to perform swallow eval. Pt. placed on strict NPO. MD notified. Pt. currently resting in bed with eyes closed. No s/s pain or distress. Frequent rounding being performed.
[2016-07-12] MEDS ORDERED: Sodium Chloride LOK Flush 10 mL Syringe IVFLUSH PRN ×2 (11:20)
[2016-07-12 12:05] LABS: INR 4.32 ratio
[2016-07-12 12:32] LABS: Mean Corpuscular Hemoglobin 27.5 pg (27.0-35.0); Mean Corpuscular Volume 92.1 fL (81-100); NEUTROPHILS % (AUTO) 90.9 % (40-74); Platelet Count 240 bil/L (150-400)
[2016-07-12 12:33] LABS: BASOPHILS % (AUTO) 0.1 % (0-3); EOSINOPHILS % (AUTO) 0.1 % (0-5); MONOCYTES % (AUTO) 2.4 % (4-12)
[2016-07-12] MEDS: Doxycycline Inj 100 MG in Dextrose 5% Minibag Plus 100 ML IV SCH ×2 (15:32→22:00)
[2016-07-12] MEDS: Nystatin 100,000 Unit/Gm 15 Gm Powder TOPICAL SCH (15:33)
--- NOTE | 2016-07-12 16:51 | NUR ---
Off Unit Pt. off unit to PICC suite for PICC placement. Verbal consent received from pt. son Federico Diez prior to leaving unit. Federico was informed of risks and benefits of PICC placement and gave verbal consent over the phone to furnace charger and this RN. Addendum: 07/12/16 at 1715 by GABRIEL SANTANA RN 1715: Pt. returned to unit. IV therapy unable to place PICC d/t inadequate veins. notified.
--- NOTE | 2016-07-12 18:31 | NUR ---
Urine Sample In-and-out cath ordered to obtain urine sample d/t pt. being incontinent. Pt. refused and stated, "I don't give a shit" when this RN attempted to explain procedure and why it was needed. Pt. became agitated, stating, "Just leave me alone. I just want to sleep" Pt. also repeating words and phrases that made no sense. Urine sample not obtained at this time.
--- NOTE | 2016-07-12 19:03 | NUR ---
IVT Unable to locate vessel of adequate size for PICC line. Pt's nurse notified.
--- NOTE | 2016-07-12 23:32 | PCM.PNMED ---
Subjective Date of Service Jul 12, 2016 Subjective Condition is more lethargic today. She is not as concerned as yesterday with getting water. She just wants to be left alone and does not want me to examine her because a examination causes her discomfort. Exam Vital Signs Vital Sign - Last Date Time Temp Pulse Resp B/P Pulse Ox O2 Delivery O2 Flow Rate FiO2 07/12/16 21:04 36.9 104 20 180/96 98 Nasal Cannula 2.00 Intake and Output 07/11/16 07/11/16 07/12/16 Cumulative From/Thru 15:00 23:00 07:00 07/08/16 22:05 - 07/12/16 06:18 Intake Total 202 ml 50 ml 0 ml 1517 ml Output Total 4 ml Balance 202 ml 50 ml 0 ml 1513 ml Intake Oral 50 ml 0 ml 50 ml IV Total 172 ml 1437 ml Tube Irrigant 30 ml 30 ml Output Urine Total 4 ml # Voids 3 1 9 # Bowel Movements 0 1 Exam General: Patient is resting comfortably on her back. She is somewhat more lethargic today and just wants to be left alone. She is uncomfortable with any intervention. HEENT: Head is atraumatic normocephalic. Eyes: Pupils are equally round and reactive to light and accommodation. Extraocular muscles are intact. Sclera are white anicteric. Subconjunctival mucosa is pink. Ears and nose are unremarkable. Oropharynx: There is no mucosal lesions, there is no thrush, there is no pharyngitis. However, her mucosa is somewhat dry. Neck: Is supple, there are no nodes, or masses or tenderness. Chest: Is significant for increased rales and a few scattered rhonchi Heart: Rate, rhythm is regular. There is no new murmur, rub or gallop. Abdomen: Good bowel sounds are present. Abdomen is obese, soft, nontender, no organomegaly or masses were appreciated. Extremities: Left upper extremity edema has improved significantly. There is still extensive ecchymosis of the left upper extremity unchanged from admission. There is blotchy ecchymosis 4/focal bruising on the right upper extremity There is no cellulitis, no rash evident. Neurologic: There are no focal neurological deficits. Cranial nerves II through XII are intact. There are no sensory or motor deficits. Patient is pleasantly confused. However, she is more lethargic today, and she is less interactive today Psychiatric: Patients mood is calm and shows no sign of agitation. Genital: Deferred Rectal: Deferred Lab and Diagnostics Result Diagram: 07/12/16 1140 07/12/16 114 Microbiology Name: ALVARADO NEAL Age/Sex: 60/F Attend Dr: SARAH EVERETT MD Acct: [id number] Unit: [id number] Status: REG ER Location: SED Re07/08/16 Disch: Specimen: [id number] Collected: 07/08/16 Status: COMP Req#: [id number] Received: 07/08/16 Source: NOSE Sp Desc : Subm Dr: SARAH EVERETT MD Ordered: RAPID FLU IRS Comments: Collected by Nurse/Unit? Y/N Y Procedure Result Verified Site Microbiology [facility] INFLUENZA RAPID AG SCREEN Final 07/08/16-2301 RESULT NEGATIVE FOR INFLUENZA TYPE A AND B This rapid assay is a screen test only for Influenza A&B and does not definitively rule out the presence of FLU A & B or other respiratory viral pathogens. The assay's sensitivity varies on the specimen type submitted. Nasal washes are optimum. Recommend respiratory viral cultures and DFA to confirm negative screens and rule out other viral pathogens. Per CDC, the sensitivity of this method is approximately 50% for H1N1. A negative result does NOT rule out Novel H1N1 (Swine Flu) Name: ALVARADO NEAL Age/Sex: 60/F Attend Dr: Patrick Clark Acct: [id number] Unit: [id number] Status: ADM IN Location: [facility] [place] 3023-1 Re07/09/16 Disch: Specimen: [id number] Collected: 07/09/16 Status: JELANI Woo#: [id number] Received: 07/09/16 Source: RANDOM Sp Desc : Subm Dr: MARGUERITE,ED Ordered: URINE CULT Procedure Result Verified Site Microbiology ANKIT CULT URINE Preliminary 07/10/16-828 PRELIMINARY ID GRAM NEGATIVE AG ID AND SENS TO FOLLOW COLONY COUNT/QUANTITY >100,000 CFU/ml X-Rays, CTs and MRIs Chest Xray Interpretation: Infiltrate including the left lung. Low lung volumes bilaterally. CHF. View: Portable, 1 view Interpretation / Wet Read by: Wet read ED physician 12-lead ECG ECG Interpretation: Normal sinus rhythm rate 77 Flattened T waves in III, AvR, AvL Time: 23:15 Interpreted by: ED physician Normal ECG Interpretation: No acute ischemic changes Cardiac Echo Impressions Echocardiogram Report Name: ALVARADO NEAL Study Date: 07/10/2016 Height: 48 in Hospital Exam Location: [facility] Weight: 196 lb Gender: Female BSA: 1.6 m2 : 1955 Age: 60 yrs BP: 167/57 mmHg Reason For Study: SOB, Fluid overload Ordering Physician: Beronica Fuentes Performed By: Zhanna Neil Referring Physician: Dr. Pb Flores Interpretation Summary Left ventricular systolic function is low normal with the ejection fraction is estimated to be 55-60%. There is a flattened septum that is consistent with a right ventricular pressure overload state but there are no other obvious focal wall motion abnormalities. Left ventricular wall thickness is at the upper limits of normal with diastolic parameters suggesting a pseudonormalization pattern, consistent with elevated filling pressures. The right ventricle is moderately dilated and right ventricular systolic function is moderately reduced. Right ventricular systolic pressure is estimated to be at least 47 mmHg plus the clinically estimated CVP which cannot be estimated on this exam. The left atrium is severely dilated and the right atrium is moderately dilated. There is mild mitral regurgitation and mild tricuspid regurgitation but no other significant valvular heart disease. The ascending aorta is mildly enlarged. Assessment & Plan Pt is a 60 y/o female who resides at [facility] w/ a hx of pseudobulbar dementia, HTN, T2DM diet controlled, CVA on warfarin, DVT, PE, who presented to the ED via EMS due to increasing SOB onset today. # Shortness of breath, appears to be due to HCAP and congestive heart failure, present on admission, acute and ongoing - Patient's outpatient records have no indication of past CHF diagnosis - x-ray has cephalization pattern - ProBNP is 70,000 (in setting of kidney failure, this is still high) - Crackles heard on auscultation B/L - Echocardiogram complete (see report above) - Considered pneumonia initially, however patient was afebrile, x-ray shows CHF- like picture, lactic acid normal, WBC only 10.5 but does have left shift. Initially CHF was considered more likely than pneumonia. However, now patient white blood cell count is over 20,000 - Vanco and Zosyn given in the ED x1. Because of the nephrotoxicity and the clinical picture of CHF, not pneumonia, Vancomycin and Zosyn. Were discontinued and ceftriaxone started. However. Due to the left shift on the CBC differential on admission and now white blood cell count over 20,000 would recommend restarting vancomycin IV and instead of Zosyn and cefepime 2 g IV every 12 hours and Flagyl 500 mg IV every 12 hours. These were started on 07/10. Meanwhile will discontinue ceftriaxone. -Dr. Cortes was consulted for infectious disease and substituted doxycycline for vancomycin as the MRSA screen was negative. Agree with Dr. Cortes's impression that patient will possibly respond to IV antibiotic therapy. - Patient was prescribed Augmentin 7 days ago in the outpatient. Unknown duration or what it was treating. - Influenza negative - Furosemide 40mg IV ordered x1. We will continue daily for now. Will restart in a.m. # Urinary tract infection, present on admission, acute secondary to Escherichia coli sensitive to ceftriaxone and cefepime - Pt received vanco and Zosyn in the ED. This was changed to ceftriaxone. However, due to the marked elevation in white blood cell count and expansion of Vancomycin cefepime and Flagyl will discontinue ceftriaxone. - Urine culture shows greater than 100,000 colonies per milliliter of Escherichia coli sensitive to ceftriaxone and cefepime. # Acute kidney injury, present on admission - On admission BUN of 53; Creatinine 2.18. on 06/25/16 outpatient: BUN was 36 and Creatinine was 2.04. On 10/2015 BUN was 31, creatinine 0.91. -Today the renal function has improved and BUN and creatinine appear to have reached her baseline and are stable - Patient has fluid overload at this time. Need to withhold fluids. - No sodium/potassium abnormalities - Will monitor and if no improvement will consider nephrology consultation. # Diabetes type 2 not on medication, present on admission, chronic - A1c was 4.5 taken 06/25/16 (seen on review of outpatient records). A1c decrease likely from kidney disease # History of CVA, present on admission, chronic - anticoagulated on warfarin - supratherapeutic INR of 3.75 - warfarin per pharmacy # Chronic low back pain, present on admission - Patient has opiate habituation. It was the one thing that she asked me to continue -- her Dilaudid TID. Will continue Other chronic conditions present on admission: Morbid obesity Essential HTN Hx of right BKA, left above the knee amputation depression chronic pain pseudobulbar palsy dependent edema left stump anxiety low back pain with sciatica PVD Hx of encephalopathy Chronic DVT of LE GERD Hyperlipidemia H/O ischemic multifocal multiple vascular territories stroke Stomatitis Anemia of chronic illness Hx thoracic spine surgery Hx stroke right shoulder surgery cataract surgery - Acetaminophen as needed for mild pain/fever/headache - Bowel regimen as needed - Antiemetic as needed -Due to patient's numerous medical problems as listed above and current poor condition I have consulted palliative care and spoke with Mauri at length, who has spoken to the patient's son at length, about the patient's care. CODE STATUS: DNR/DNI Pain Evaluation: Adequate Pain Control GI Prophylaxis: H2 quinn VTE Prophylaxis: Theraputic Anticoag with Warfarin Resuscitation Status: DNR/DNI:Do Not Resuscitate/Intubate Patrick Clark MD Jul 12, 2016 23:32
[2016-07-13] VITALS (10 sets, daily range): BP systolic 163–178; BP diastolic 78–105; PULSE 97–115; RESP 18–20; O2SAT 96–99
[2016-07-13] MEDS: Nystatin 100,000 Unit/Gm 15 Gm Powder TOPICAL SCH ×3 (01:02→22:30)
[2016-07-13] MEDS: Cefepime Inj 1,000 MG in Dextrose 5% Minibag Plus 50 ML IV SCH ×3 (01:03→22:29)
[2016-07-13] MEDS: Dextrose 5% 0.45% NaCl 1,000 ML IV SCH ×3 (01:37→22:33)
[2016-07-13] MEDS ORDERED: hydrALAZINE 20 mg/mL Inj IV ONE (03:40)
--- NOTE | 2016-07-13 05:14 | NUR ---
Blood pressure/blood sugar Patients blood pressure elevated 170/102. HR elevated 105. notified. order for hydralazine 10mg IV given. Patients blood pressure decreased to 160/80's 30 minutes later will continue to monitor. patients blood sugar 70 at 0100. patient NPO. paged. new order for IVF D5 / NS at 80ml/hr. aware of CHF. 1 hour later Blood sugar improving 79. patient non-symptomatic. will continue to monitor.
[2016-07-13 06:23] LABS: BASOPHILS % (AUTO) 0.2 % (0-3); EOSINOPHILS % (AUTO) 0.1 % (0-5); MONOCYTES % (AUTO) 3.9 % (4-12); Mean Corpuscular Hemoglobin 27.7 pg (27.0-35.0); Mean Corpuscular Volume 92.7 fL (81-100); NEUTROPHILS % (AUTO) 84.2 % (40-74); Platelet Count 214 bil/L (150-400)
[2016-07-13 07:02] LABS: INR 6.61 ratio
[2016-07-13] MEDS: Pantoprazole 4 mg/mL 10 mL Inj IVPUSH SCH (07:51)
[2016-07-13] MEDS: metroNIDAZOLE Inj 500 MG in IV Premix 1 EACH IV SCH ×2 (07:57→21:06)
[2016-07-13] MEDS: ALPRAZolam 0.5 mg Tablet PO SCH ×3 (07:59→20:30)
[2016-07-13] MEDS ORDERED: Phytonadione (Adult) 5 MG in 0.9% Sodium Chloride-Pha MIX 50 ML IV ONE (08:20)
[2016-07-13] MEDS ORDERED: Fluconazole Inj 200 MG in IV Premix 1 EACH IV SCH (08:30)
[2016-07-13] MEDS: Furosemide 10 mg/mL 4 mL Inj IVPUSH SCH (09:07)
[2016-07-13] MEDS: Doxycycline Inj 100 MG in Dextrose 5% Minibag Plus 100 ML IV SCH ×2 (10:44→20:30)
--- NOTE | 2016-07-13 16:42 | NUR ---
IV, Skin Care, Cough Pt's 2nd IV came out today, currently only w/ one SL access. Pt on multiple IV medications, all timed to be given at same time. Called pharmacy to change time of some meds. Pt compliant with turning, though does say "ow", "stop it", "leave me alone". Redness to folds noted with previous applications of calmoseptine. Attempted to wipe off to apply nystatin, unable to clean completely d/t pain. Pt continues w/ moist weak cough. Addendum: 07/13/16 at 1752 by CHRISTINA GRAFF RN Pt also noted to have fever this shift. Hospital aware. Pharmacy wanting to hold off on tylenol for now d/t LFT's.
--- NOTE | 2016-07-13 20:12 | PCM.PNMED ---
Subjective Date of Service Jul 13, 2016 Subjective Patient is a little bit more alert and conversive today. She is having some periods of lucidity and others where she simply utters nonsensical words. Exam Vital Signs Vital Sign - Last Date Time Temp Pulse Resp B/P Pulse Ox O2 Delivery O2 Flow Rate FiO2 07/13/16 16:50 37.3 109 20 177/105 98 Nasal Cannula 1.00 Intake and Output 07/12/16 07/12/16 07/13/16 Cumulative From/Thru 15:00 23:00 07:00 07/08/16 22:05 - 07/13/16 06:25 Intake Total 0 ml 629 ml 2146 ml Output Total 4 ml Balance 0 ml 629 ml 2142 ml Intake Oral 0 ml 0 ml 50 ml IV Total 629 ml 2066 ml Tube Irrigant 30 ml Output Urine Total 4 ml # Voids 4 2 15 # Bowel Movements 0 1 Exam General: Patient is resting comfortably on her back. However, she continues to be uncomfortable with any intervention. HEENT: Head is atraumatic normocephalic. Eyes: Pupils are equally round and reactive to light and accommodation. Extraocular muscles are intact. Sclera are white anicteric. Subconjunctival mucosa is pink. Ears and nose are unremarkable. Oropharynx: There is no mucosal lesions, there is no thrush, there is no pharyngitis. However, her mucosa is somewhat dry. Neck: Is supple, there are no nodes, or masses or tenderness. Chest: Is significant for basilar rales and a few scattered rhonchi Heart: Rate, rhythm is regular. There is no new murmur, rub or gallop. Abdomen: Good bowel sounds are present. Abdomen is obese, soft, nontender, no organomegaly or masses were appreciated. Extremities: Left upper extremity edema has improved. There is still extensive ecchymosis of the left upper extremity unchanged from admission. There is blotchy ecchymosis and focal bruising on the right upper extremity There is no cellulitis, no rash evident. Neurologic: There are no focal neurological deficits. Cranial nerves II through XII are intact. There are no sensory or motor deficits. Patient is pleasantly confused. She is slightly less lethargic today, and she is more interactive today Psychiatric: Patients mood is calm and shows no sign of agitation. Genital: Deferred Rectal: Deferred Lab and Diagnostics Result Diagram: 07/13/16 0555 07/13/16 0555 Microbiology Name: ALVARADO NEAL Arianna Age/Sex: 60/F Attend Dr: MARGUERITE,SARAH WOO Acct: [id number] Unit: [id number] Status: REG ER Location: SED Re07/08/16 Disch: Specimen: [id number] Collected: 07/08/16 Status: COMP Req#: [id number] Received: 07/08/16 Source: NOSE Sp Desc : Subm Dr: MARGUERITE,SARAH WOO Ordered: RAPID FLU IRS Comments: Collected by Nurse/Unit? Y/N Y Procedure Result Verified Site Microbiology [facility] INFLUENZA RAPID AG SCREEN Final 07/08/16 RESULT NEGATIVE FOR INFLUENZA TYPE A AND B This rapid assay is a screen test only for Influenza A&B and does not definitively rule out the presence of FLU A & B or other respiratory viral pathogens. The assay's sensitivity varies on the specimen type submitted. Nasal washes are optimum. Recommend respiratory viral cultures and DFA to confirm negative screens and rule out other viral pathogens. Per CDC, the sensitivity of this method is approximately 50% for H1N1. A negative result does NOT rule out Novel H1N1 (Swine Flu) Name: VALALVARADO L Age/Sex: 60/F Attend Dr: Patrick Clark Acct: [id number] Unit: [id number] Status: ADM IN [place] [facility] [place]23-1 Re07/09/16 Disch: Specimen: [id number] Collected: 07/09/16 Status: RES Req#: [id number] Received: 07/09/16 Source: RANDOM Sp Desc : Rex Dr: MARGUERITE,ED Ordered: URINE CULT Procedure Result Verified Site Microbiology ANKIT CULT URINE Preliminary 07/10/16-828 PRELIMINARY ID GRAM NEGATIVE AG ID AND SENS TO FOLLOW COLONY COUNT/QUANTITY >100,000 CFU/ml X-Rays, CTs and MRIs Chest Xray Interpretation: Infiltrate including the left lung. Low lung volumes bilaterally. CHF. View: Portable, 1 view Interpretation / Wet Read by: Wet read ED physician 12-lead ECG ECG Interpretation: Normal sinus rhythm rate 77 Flattened T waves in III, AvR, AvL Time: 23:15 Interpreted by: ED physician Normal ECG Interpretation: No acute ischemic changes Cardiac Echo Impressions Echocardiogram Report Name: ALVARADO NEAL Study Date: 07/10/2016 Height: 48 in Hospital Exam Location: [facility] Weight: 196 lb Gender: Female BSA: 1.6 m2 : 1955 Age: 60 yrs BP: 167/57 mmHg Reason For Study: SOB, Fluid overload Ordering Physician: Beronica Fuentes Performed By: Zhanna Neil Referring Physician: Dr. Pb Flores Interpretation Summary Left ventricular systolic function is low normal with the ejection fraction is estimated to be 55-60%. There is a flattened septum that is consistent with a right ventricular pressure overload state but there are no other obvious focal wall motion abnormalities. Left ventricular wall thickness is at the upper limits of normal with diastolic parameters suggesting a pseudonormalization pattern, consistent with elevated filling pressures. The right ventricle is moderately dilated and right ventricular systolic function is moderately reduced. Right ventricular systolic pressure is estimated to be at least 47 mmHg plus the clinically estimated CVP which cannot be estimated on this exam. The left atrium is severely dilated and the right atrium is moderately dilated. There is mild mitral regurgitation and mild tricuspid regurgitation but no other significant valvular heart disease. The ascending aorta is mildly enlarged. Assessment & Plan Pt is a 60 y/o female who resides at [facility] w/ a hx of pseudobulbar dementia, HTN, T2DM diet controlled, CVA on warfarin, DVT, PE, who presented to the ED via EMS due to increasing SOB onset today. # Shortness of breath, appears to be due to HCAP and congestive heart failure, present on admission, acute and ongoing - Patient's outpatient records have no indication of past CHF diagnosis - x-ray has cephalization pattern - ProBNP is 70,000 (in setting of kidney failure, this is still high) - Crackles heard on auscultation B/L - Echocardiogram complete (see report above) - Considered pneumonia initially, however patient was afebrile, x-ray showed CHF -like picture, lactic acid normal, WBC only 10.5 but did have left shift. Initially CHF was considered more likely than pneumonia. However, patient's white count george to over 20,000 the following day. - Vanco and Zosyn given in the ED x1. Because of the nephrotoxicity and the clinical picture of CHF, not pneumonia, Vancomycin and Zosyn. Were discontinued and ceftriaxone started. However. Due to the left shift on the CBC differential on admission and white blood cell count over 20,000 the antibiotics were restarted with vancomycin IV and instead of Zosyn and cefepime 2 g IV every 12 hours and Flagyl 500 mg IV every 12 hours. These were started on 07/10/2016. Meanwhile ceftriaxone was discontinued. -Dr. Cortes was consulted for infectious disease and substituted doxycycline for vancomycin as the MRSA screen was negative. Agree with Dr. Cortes's impression that patient will possibly respond to IV antibiotic therapy. - Patient was prescribed Augmentin 7 days ago in the outpatient. Unknown duration or what it was treating. - Influenza negative - Furosemide 40mg IV ordered x1 in the emergency room. We will continue daily for now. # Urinary tract infection, present on admission, acute secondary to Escherichia coli sensitive to ceftriaxone and cefepime - Pt received vanco and Zosyn in the ED. This was changed to ceftriaxone. However, due to the marked elevation in white blood cell count and expansion of Vancomycin cefepime and Flagyl will discontinue ceftriaxone. - Urine culture shows greater than 100,000 colonies per milliliter of Escherichia coli sensitive to ceftriaxone and cefepime. Patient continued on cefepime. # Acute kidney injury, present on admission - On admission BUN of 53; Creatinine 2.18. on 06/25/16 outpatient: BUN was 36 and Creatinine was 2.04. (On 10/2015 BUN was 31, creatinine 0.91) renal function is not quite back to baseline yet but BUN is 38 and creatinine is down to 1.84.. - Patient had fluid overload due to fluid resuscitation of the time of admission. However, IV fluids have been discontinued for now. Although they will need to be restarted if patient continues to have poor by mouth intake. - No sodium/potassium abnormalities - Will monitor and if no improvement will consider nephrology consultation. # Diabetes type 2 not on medication, present on admission, chronic - A1c was 4.5 taken 06/25/16 (seen on review of outpatient records). A1c decrease likely from kidney disease -Patient nothing by mouth at present time per speech therapy. Hopefully this will change if she responds to IV antibiotic therapy. A call was placed to the patient's son regarding her clinical situation. He does not want her to be artificially fed according to the charge nurse Halley spoke with patient's son. Palliative care has been consulted and will follow up on 07/15/2015. # History of CVA, present on admission, chronic - anticoagulated on warfarin - supratherapeutic INR of greater than 6 - warfarin per pharmacy on hold -Vitamin K 5 mg IV to be given today # Chronic low back pain, present on admission - Patient has opiate habituation. Will continue as needed. Other chronic conditions present on admission: Morbid obesity Essential HTN Hx of right BKA, left above the knee amputation depression chronic pain pseudobulbar palsy dependent edema left stump anxiety low back pain with sciatica PVD Hx of encephalopathy Chronic DVT of LE GERD Hyperlipidemia H/O ischemic multifocal multiple vascular territories stroke Stomatitis Anemia of chronic illness Hx thoracic spine surgery Hx stroke right shoulder surgery cataract surgery - Acetaminophen as needed for mild pain/fever/headache - Bowel regimen as needed - Antiemetic as needed -Due to patient's numerous medical problems as listed above and current poor condition I have consulted palliative care and spoke with Amber at length, who has spoken to the patient's son at length, about the patient's care. CODE STATUS: DNR/DNI Pain Evaluation: Adequate Pain Control GI Prophylaxis: H2 quinn VTE Prophylaxis: Theraputic Anticoag with Warfarin Resuscitation Status: DNR/DNI:Do Not Resuscitate/Intubate Patrick Clark MD Jul 13, 2016 20:12
--- NOTE | 2016-07-13 23:35 | NUR ---
A Fib: aviation safety technician reported to RN that pt had converted to a fib at 1300, previous shift. RN ordered an EKG which confirmed pt is in a fib. Rate has been 100s-110s. Night hospitalist paged and is aware. No new orders.
[2016-07-14] VITALS (7 sets, daily range): BP systolic 152–177; BP diastolic 84–95; PULSE 91–112; RESP 17–20; O2SAT 91–98
[2016-07-14] MEDS ORDERED: Doxycycline Inj 100 MG in Dextrose 5% Minibag Plus 100 ML IV SCH (00:47)
[2016-07-14 06:46] LABS: BASOPHILS % (AUTO) 0.3 % (0-3); EOSINOPHILS % (AUTO) 0.5 % (0-5); MONOCYTES % (AUTO) 7.4 % (4-12); Mean Corpuscular Hemoglobin 27.2 pg (27.0-35.0); NEUTROPHILS % (AUTO) 75.5 % (40-74); Platelet Count 207 bil/L (150-400)
[2016-07-14 07:04] LABS: INR 1.73 ratio
[2016-07-14] MEDS: ALPRAZolam 0.5 mg Tablet PO SCH ×3 (08:07→20:25)
[2016-07-14] MEDS: Furosemide 10 mg/mL 4 mL Inj IVPUSH SCH (08:14)
[2016-07-14] MEDS: Pantoprazole 4 mg/mL 10 mL Inj IVPUSH SCH (08:14)
[2016-07-14] MEDS: metroNIDAZOLE Inj 500 MG in IV Premix 1 EACH IV SCH (08:15)
[2016-07-14] MEDS: Nystatin 100,000 Unit/Gm 15 Gm Powder TOPICAL SCH ×2 (08:15→20:25)
--- NOTE | 2016-07-14 09:07 | NUR ---
Social Work-continued d/c planning: Data:EMR Reviewed. Pt is on day 5 of hospitalization for for fluid overload per H&P. Per Md, pt is several days out from discharge. Pt is a senior living care pt at [facility] and will return there at discharge with Dr. Flores to follow. Paperwork in the chart. SW will continue to follow. Assessment:Pt who resides at [facility]. Plan:Pt to discharge back to [facility] when medically stable with Dr. Flores to follow. Paperwork in the chart. SW will continue to follow. СЕРГЕЙ Cassidy
[2016-07-14] MEDS: Cefepime Inj 1,000 MG in Dextrose 5% Minibag Plus 50 ML IV SCH ×2 (09:56→13:20)
[2016-07-14] MEDS ORDERED: Magnesium Hydroxide 10 mL Oral Concentration PO PRN (11:00)
--- NOTE | 2016-07-14 11:30 | PCM.PHAPRO ---
Progress Warfarin Management by Pharmacy Indication: DVT/PE CHADS2-VASc: 5 Home Dose: Warfarin 1 mg Thursday, 0.5 mg AOD (per [facility] [phone] ) INR Goal: 2-3 Duration: Unknown Vit K given: 5 mg IV on 07/13/16 Anticoagulation Trends Lab Date Result Dose INR 07/08/16 3.42 Held INR 07/09/16 3.46 Held INR 07/10/16 3.70 Held INR 07/11/16 3.37 Held INR 07/12/16 4.32 Held INR 07/13/16 6.61 Held INR 07/14/16 1.73 Therapeutic bridge therapy: None Assessment/Plan - Supratherapeutic INR with no doses given while inpatient IV vitamin K administered yesterday (07/13) but no bleeds reported. Receiving broad spectrum ABX for possible pulmonary infection. - Will restart warfarin at 1 mg this evening. Anticipate effects of IV vitamin K to remain for a few more days but given unstable levels, will not dose higher than 1 mg. -Pharmacy to monitor INR/CBC/signs of bleeding while inpatient. Renay Dumont Dwaine Pharm.D. Nilton Niño Jul 14, 2016 11:30
[2016-07-14] MEDS: Fluconazole Inj 200 MG in IV Premix 1 EACH IV SCH (13:17)
[2016-07-14] MEDS: D5 0.45% NaCl + KCl 20 mEq/L 1,000 ML IV SCH ×2 (15:26→21:40)
[2016-07-14] MEDS ORDERED: Polyethylene Glycol (PEG) 17 Gm Powder PO PRN (15:35)
[2016-07-14] MEDS: Doxycycline Inj 100 MG in Dextrose 5% Minibag Plus 100 ML IV SCH (17:46)
--- NOTE | 2016-07-14 21:13 | PCM.PNMED ---
Subjective Date of Service Jul 14, 2016 Subjective Patient is a little bit more awake and alert. She did better with speech therapy today and is able to eat a stim diet. Patient has no other new complaints. She remains pleasantly confused. Exam Vital Signs Vital Sign - Last Date Time Temp Pulse Resp B/P Pulse Ox O2 Delivery O2 Flow Rate FiO2 07/14/16 18:05 37.1 110 17 152/90 95 Nasal Cannula 1.00 Intake and Output 07/13/16 07/13/16 07/14/16 Cumulative From/Thru 15:00 23:00 07:00 07/08/16 22:05 - 07/14/16 06:39 Intake Total 806 ml 1044 ml 3996 ml Output Total 4 ml Balance 806 ml 1044 ml 3992 ml Intake Oral 0 ml 0 ml 50 ml IV Total 806 ml 1044 ml 3916 ml Tube Irrigant 30 ml Output Urine Total 4 ml # Voids 4 4 23 # Bowel Movements 0 1 Exam General: Patient is resting comfortably on her back. However, she continues to be uncomfortable with any intervention. She is refusing a straight cath for urinalysis and urine culture. HEENT: Head is atraumatic normocephalic. Eyes: Pupils are equally round and reactive to light and accommodation. Extraocular muscles are intact. Sclera are white anicteric. Subconjunctival mucosa is pink. Ears and nose are unremarkable. Oropharynx: There are no mucosal lesions, there is no thrush, there is no pharyngitis. However, her mucosa is somewhat dry. Neck: Is supple, there are no nodes, or masses or tenderness. Chest: Her breath sounds are clear to auscultation however there still remains some basilar rales and a few scattered rhonchi Heart: Rate, rhythm is regular. There is no new murmur, rub or gallop. Abdomen: Good bowel sounds are present. Abdomen is obese, soft, nontender, no organomegaly or masses were appreciated. There is skin breakdown in the folds and creases of her skin secondary to [place]. Extremities: Left upper extremity edema has improved. There is still extensive ecchymosis of the left upper extremity unchanged from admission. There is blotchy ecchymosis and focal bruising on the right upper extremity There is no cellulitis, no rash evident. There is no weeping edema Skin: There is some skin breakdown on her back on the right side for the size of a half-dollar. This was present on admission. Neurologic: There are no focal neurological deficits. Cranial nerves II through XII are intact. There are no sensory or motor deficits. Patient is pleasantly confused. She is slightly less lethargic today, and she is more interactive again today. Psychiatric: Patients mood is calm and shows no sign of agitation. Genital: Deferred Rectal: Deferred Lab and Diagnostics Result Diagram: 07/14/1662907/14/16629 Microbiology Name: ALVARADO NEAL Age/Sex: 60/F Attend Dr: DOC,ED Acct: [id number] Unit: [id number] Status: REG ER Location: SED Re07/08/16 Disch: Specimen: [id number] Collected: 07/08/16 Status: COMP Req#: [id number] Received: 07/08/16 Source: NOSE Sp Desc : Subm Dr: DOC,ED Ordered: RAPID FLU IRS Comments: Collected by Nurse/Unit? Y/N Y Procedure Result Verified Site Microbiology [facility] INFLUENZA RAPID AG SCREEN Final 07/08/16-2301 RESULT NEGATIVE FOR INFLUENZA TYPE A AND B This rapid assay is a screen test only for Influenza A&B and does not definitively rule out the presence of FLU A & B or other respiratory viral pathogens. The assay's sensitivity varies on the specimen type submitted. Nasal washes are optimum. Recommend respiratory viral cultures and DFA to confirm negative screens and rule out other viral pathogens. Per CDC, the sensitivity of this method is approximately 50% for H1N1. A negative result does NOT rule out Novel H1N1 (Swine Flu) Name: ALVARADO NEAL Age/Sex: 60/F Attend Dr: Patrick Clark Acct: [id number] Unit: [id number] Status: ADM IN Location: [facility] 3023-1 Re07/09/16 Disch: Specimen: [id number] Collected: 07/09/16-34 Status: RES Req#: [id number] Received: 07/09/16 Source: RANDOM Sp Desc : Subm Dr: DOC,ED Ordered: URINE CULT Procedure Result Verified Site Microbiology ANKIT CULT URINE Preliminary 07/10/16 PRELIMINARY ID GRAM NEGATIVE AG ID AND SENS TO FOLLOW COLONY COUNT/QUANTITY >100,000 CFU/ml X-Rays, CTs and MRIs Chest Xray Interpretation: Infiltrate including the left lung. Low lung volumes bilaterally. CHF. View: Portable, 1 view Interpretation / Wet Read by: Wet read ED physician 12-lead ECG ECG Interpretation: Normal sinus rhythm rate 77 Flattened T waves in III, AvR, AvL Time: 23:15 Interpreted by: ED physician Normal ECG Interpretation: No acute ischemic changes Cardiac Echo Impressions Echocardiogram Report Name: ALVARADO NEAL Study Date: 07/10/2016 Height: 48 in Hospital Exam Location: [facility] Weight: 196 lb Gender: Female BSA: 1.6 m2 : 1955 Age: 60 yrs BP: 167/57 mmHg Reason For Study: SOB, Fluid overload Ordering Physician: Beronica Fuentes Performed By: Zhanna Neil Referring Physician: Dr. Pb Flores Interpretation Summary Left ventricular systolic function is low normal with the ejection fraction is estimated to be 55-60%. There is a flattened septum that is consistent with a right ventricular pressure overload state but there are no other obvious focal wall motion abnormalities. Left ventricular wall thickness is at the upper limits of normal with diastolic parameters suggesting a pseudonormalization pattern, consistent with elevated filling pressures. The right ventricle is moderately dilated and right ventricular systolic function is moderately reduced. Right ventricular systolic pressure is estimated to be at least 47 mmHg plus the clinically estimated CVP which cannot be estimated on this exam. The left atrium is severely dilated and the right atrium is moderately dilated. There is mild mitral regurgitation and mild tricuspid regurgitation but no other significant valvular heart disease. The ascending aorta is mildly enlarged. Assessment & Plan Pt is a 60 y/o female who resides at [facility] w/ a hx of pseudobulbar dementia, HTN, T2DM diet controlled, CVA on warfarin, DVT, PE, who presented to the ED via EMS due to increasing SOB onset today. # Shortness of breath, appears to be due to HCAP and congestive heart failure, present on admission, acute and ongoing - Patient's outpatient records have no indication of past CHF diagnosis - x-ray has cephalization pattern - ProBNP is 70,000 (in setting of kidney failure, this is still high) - Crackles heard on auscultation B/L - Echocardiogram complete (see report above) - Considered pneumonia initially, however patient was afebrile, x-ray showed CHF -like picture, lactic acid normal, WBC only 10.5 but did have left shift. Initially CHF was considered more likely than pneumonia. However, patient's white count george to over 20,000 the following day. - Vanco and Zosyn given in the ED x1. Because of the nephrotoxicity and the clinical picture of CHF, not pneumonia, Vancomycin and Zosyn. Were discontinued and ceftriaxone started. However. Due to the left shift on the CBC differential on admission and white blood cell count over 20,000 the antibiotics were restarted with vancomycin IV and instead of Zosyn and cefepime 2 g IV every 12 hours and Flagyl 500 mg IV every 12 hours. These were started on 07/10/2016. Meanwhile ceftriaxone was discontinued. -Dr. Cortes was consulted for infectious disease and substituted doxycycline for vancomycin as the MRSA screen was negative. Agree with Dr. Cortes's impression that patient will possibly respond to IV antibiotic therapy. - Patient was prescribed Augmentin 7 days ago in the outpatient. Unknown duration or what it was treating. - Influenza negative - Furosemide 40mg IV ordered x1 in the emergency room. We will continue daily for now. -We will repeat chest x-ray in a.m. # Urinary tract infection, present on admission, acute secondary to Escherichia coli sensitive to ceftriaxone and cefepime - Pt received vanco and Zosyn in the ED. This was changed to ceftriaxone. However, due to the marked elevation in white blood cell count and expansion of Vancomycin cefepime and Flagyl will discontinue ceftriaxone. - Urine culture shows greater than 100,000 colonies per milliliter of Escherichia coli sensitive to ceftriaxone and cefepime. Patient continued on cefepime. # Acute kidney injury, present on admission - On admission BUN of 53; Creatinine 2.18. on 06/25/16 outpatient: BUN was then 36 and Creatinine was 2.04. (On 10/2015 BUN was 31, creatinine 0.91) renal function . Patient's renal function appears to be a new baseline now with a BUN of 34 and a creatinine of 1.81 on 07/14/2016 - Patient had fluid overload due to fluid resuscitation of the time of admission. However, IV fluids have been discontinued for now. Although they will need to be restarted if patient continues to have poor by mouth intake. - No sodium/potassium abnormalities - Will monitor and if no improvement will consider nephrology consultation. # Diabetes type 2 not on medication, present on admission, chronic - A1c was 4.5 taken 06/25/16 (seen on review of outpatient records). A1c decrease likely from kidney disease -Patient was held nothing by mouth for 3 days per speech therapy. On 2016 speech therapy has allowed the patient to advance her diet to a Stim diet. A call was placed to the patient's son regarding her clinical situation. He does not want her to be artificially fed according to the charge nurse Halley who spoke with patient's son. Palliative care has been consulted and will follow up on 07/15/2015 to determine how aggressive son would like us to be. # Tinea cruris -Patient has skin breakdown in skin folds secondary to candidiasis -This is likely related to broad spectrum antibiotic use and diabetes mellitus and morbid obesity with deep skin folds and immobility -2 new Diflucan 200 mg IV daily. -Consider discontinuing doxycycline. # History of CVA, present on admission, chronic - anticoagulated on warfarin - supratherapeutic INR of greater than 6 - warfarin per pharmacy on hold -Vitamin K 5 mg IV to be given today # Chronic low back pain, present on admission - Patient has opiate habituation. Will continue as needed. Other chronic conditions present on admission: Morbid obesity Essential HTN Hx of right BKA, left above the knee amputation depression chronic pain pseudobulbar palsy dependent edema left stump anxiety low back pain with sciatica PVD Hx of encephalopathy Chronic DVT of [place] Hyperlipidemia H/O ischemic multifocal multiple vascular territories stroke Stomatitis Anemia of chronic illness Hx thoracic spine surgery Hx stroke right shoulder surgery cataract surgery - Acetaminophen as needed for mild pain/fever/headache - Bowel regimen as needed - Antiemetic as needed -Due to patient's numerous medical problems as listed above and current poor condition I have consulted palliative care and spoke with Amber at length, who has spoken to the patient's son at length, about the patient's care. We will have palliative care revisit the patient and speak with the patient's family again tomorrow. CODE STATUS: DNR/DNI Pain Evaluation: Adequate Pain Control GI Prophylaxis: H2 quinn VTE Prophylaxis: Theraputic Anticoag with Warfarin Resuscitation Status: DNR/DNI:Do Not Resuscitate/Intubate Patrick Clark MD Jul 14, 2016 21:13
--- NOTE | 2016-07-14 21:34 | PROG NOTE ---
[address] [address] PROGRESS NOTE PATIENT: ALVARADO NEAL : 1955 MR#: [id number] ADMIT: 07/09/2016 JOB ID: [id number] DATE: 07/14/2016 REASON FOR FOLLOWUP: Possible pneumonia, E. coli UTI, leukocytosis, and worsening liver function tests. INTERVAL HISTORY: Recall that this is a 60-year-old woman with dementia who lives in a [facility] and has severe peripheral vascular disease who has previously required amputations of both lower extremities. When we last saw the patient three days ago, we were concerned about her fever, leukocytosis, possible pneumonia, and UTI. The antibiotic therapy at that time was doxycycline, cefepime, and Flagyl to cover for nosocomial/prison type organisms causing pneumonia as well as to cover the E coli that had been found in the urine. Subsequently, fluconazole was added over the weekend. This afternoon, the patient tells us she is feeling "fine." She is not a good historian and answers most all questions with the word "fine." She denies focal complaint, though when her abdomen is palpated, she does seem to experience some minimal pain. PHYSICAL EXAMINATION: VITAL SIGNS: Reveals a woman who is now afebrile, but had temperatures through early yesterday morning, currently 37 degrees. Pulse 91, respiratory rate 20, blood pressure 158/89. She is saturating well on 1 L. GENERAL: Does not appear to be in distress. EYES: Examination of the eyes without jaundice. Her overall skin appearance is sallow. Oral cavity without thrush though she has some gingival disease which is obvious. LUNGS: Clear anteriorly, but cannot get her to lean forward for posterior auscultation. ABDOMEN: Some questionable right mid tenderness, but no discernible mass or abnormality there. No new skin rash. LABORATORIES: Include white count which had been as high as 24,000, now normal at 8900. The diff is also becoming normal, now down to 75 segs, which is functionally normal after having a big left shift earlier in her hospital stay. Creatinine stable at 1.8. LFTs are now increasing with AST going to 314 from normal and ALT going to 82 from normal. BNP has been over 70,000 on two measurements. Pro calcitonin 0.77. Micro studies include the positive urine for a fairly resistant E. coli. MRSA screen blood cultures negative. IMAGING: Includes the CT chest, abdomen and pelvis done on the which we previously discussed. It shows bilateral lower lobe infiltrates as well as a large amount of stool. IMPRESSION: This is a confusing case made more difficult by the patient's dementia and inability to provide much in the way of history. It does appear she has some degree of bilateral pulmonary infiltrates, which likely produced her fever and leukocytosis and is responding to extremely broad antibiotics. No positive cultures are available. Additionally, the patient did have an Escherichia coli urinary tract infection as evidenced by heavy pyuria and a positive culture and this is undoubtedly being effectively managed by the cefepime. A new concern which has arisen today is her rapidly increasing liver function tests. These could be due to some form of shock liver perhaps which predated her admission, but also would be concerned about drug induced toxicity such as hepatitis arising from cefepime, Flagyl, or doxycycline conceivably. The fluconazole was added yesterday and cannot be the cause of her rapidly increasing liver function tests, but might exacerbate it conceivably. RECOMMENDATIONS: 1. Will go ahead and discontinue the Flagyl, as I think it has little to add in terms of her therapy and could be causing toxicity. 2. Will need to closely watch her LFTs over the next day or two with consideration to stop all other possible hepatotoxic meds if her LFTs continue to rise. 3. I plan to discuss this case with Dr. Clark later today.
--- NOTE | 2016-07-14 21:46 | DRSVH ---
PROCEDURE: X-RAY CHEST ONE VIEW, PORTABLE ([id number]) INDICATIONS: 60 year-old female with bibasilar pneumonia. TECHNIQUE: One view of the chest was acquired. COMPARISON: [facility], CR, XR CHEST 1VW (PORTABLE), 07/10/2016, 21:51. [facility], CR, XR CHEST 1VW (PORTABLE), 07/08/2016, 22:57. FINDINGS: Surgical changes and devices: None. Lungs and pleura: Retrocardiac opacities have decreased. There are persistent patchy right mid and lo wer lung opacities. No pleural effusions or pneumothorax. Mediastinum: Mediastinal contours appear normal. Heart size is normal. Bones and chest wall: No suspicious bony lesions. Overlying soft tissues appear unremarkable. IMPRESSION: Decreased but not resolved bilateral airspace opacities, consistent with bronchopneumonia . Dictated by: Dave Salcedo M.D. on 07/14/2016 at 21:44 Approved by: Dave Salcedo M.D. on 07/14/2016 at 21:44
[2016-07-15] VITALS (9 sets, daily range): BP systolic 141–167; BP diastolic 81–108; PULSE 82–107; RESP 10–18; O2SAT 94–96
[2016-07-15] MEDS: Cefepime Inj 1,000 MG in Dextrose 5% Minibag Plus 50 ML IV SCH ×2 (00:07→12:10)
[2016-07-15] MEDS ORDERED: Sodium Biphos-Phos 133 mL Enema RECTAL PRN (05:15)
[2016-07-15] MEDS: Doxycycline Inj 100 MG in Dextrose 5% Minibag Plus 100 ML IV SCH (06:00)
[2016-07-15 06:11] LABS: BASOPHILS % (AUTO) 0.4 % (0-3); EOSINOPHILS % (AUTO) 1.2 % (0-5); MONOCYTES % (AUTO) 8.7 % (4-12); Mean Corpuscular Hemoglobin 27.4 pg (27.0-35.0); Mean Corpuscular Volume 93.2 fL (81-100); NEUTROPHILS % (AUTO) 69.7 % (40-74); Platelet Count 178 bil/L (150-400)
--- NOTE | 2016-07-15 06:15 | NUR ---
Activity/BM Pt is currently on bedrest. No s/sx of chest pain, sob, n/v and abd discomfort. Administered Fleets enema, and noted a small formed bowel movement. Provide q2 turns and skin care. Doxycycline non-administer as the drugs is currently unavailable per pharmacist. Will continue to monitor.
[2016-07-15 06:30] LABS: INR 1.55 ratio
[2016-07-15 07:10] LABS: Magnesium 1.4 mg/dL (1.6-2.6)
[2016-07-15] MEDS: Pantoprazole 4 mg/mL 10 mL Inj IVPUSH SCH (09:36)
[2016-07-15] MEDS: Furosemide 10 mg/mL 4 mL Inj IVPUSH SCH (09:36)
[2016-07-15] MEDS: ALPRAZolam 0.5 mg Tablet PO SCH ×3 (09:37→20:30)
[2016-07-15] MEDS: Nystatin 100,000 Unit/Gm 15 Gm Powder TOPICAL SCH ×2 (09:38→20:30)
[2016-07-15] MEDS: Fluconazole Inj 200 MG in IV Premix 1 EACH IV SCH ×2 (09:44→09:48)
[2016-07-15] MEDS: HYDROmorphone 1 mg/mL Inj IVPUSH PRN (10:23)
[2016-07-15] MEDS: D5 0.45% NaCl + KCl 20 mEq/L 1,000 ML IV SCH (12:10)
--- NOTE | 2016-07-15 14:25 | PCM.PNPALL ---
Date of Service Jul 15, 2016 Date of Hospital Admission: Jul 09, 2016 at 02:33 Date of Palliative Consult: Jul 11, 2016 Palliative Care Recommendation This is a 60 yr old who appears older than her stated age, with a history of admitted with sepsis, now with ongoing leukocytosis, possible high risk infectious involvement. Reviewed with Dr. Garcia nursing staff and case management and son . Summary of palliative recommendations: Pain management will restart fentanyl patch at 12.5 g Nutrition to continue encouraging by mouth intake Monitor for constipation with use of suppositories when necessary Goals of care comfort -DPOA/Advanced Directives/POLST: confirmed that patient's current POLST: DNR/DNI , comfort care. We will continue with treatment with antibiotics until course completed. We will continue to encourage by mouth intake to support this hydration and nutrition.. Goal be to discharge back to [facility] with goal of management at the custodial optimizing treatments aimed at comfort. Hospice to be involved if helpful for patient care management -Family/emotional support: d/w son of above--will provide support as needed. Patient Goals: 1. Patient wants to be told the truth about his/her illness, even if it is unpleasant. 2. Patient would like to be told prognosis when it can be predicted, to better guide treatment decisions. 3. Patient would choose quality of life over quantity of life, and defines quality as able to interact with family. 4. Patient would request that comfort care take priority over cognitive/mental confusion. Additional Medical Diagnoses with primary management by Hospitalist team include : Problems: End of Life Preferences Son prefers that patient continue at [facility]. He has been very pleased with her care Goals of Care Continue antibiotics until course completed per ID Encourage by mouth intake Disposition [facility] will accept patient back for LTC. Family unable to provide in home support. Resuscitation Status Resuscitation Status: DNR/DNI:Do Not Resuscitate/Intubate POLST Updates/Changes Previous POLST?: Yes Antibiotics: Determine Use or Limitations Artificially Admin Nutrition: No Artifical Nutrition by Tube POLST Discussed with: Patient, Spouse/Other (son- ) POLST Review Outcome: No Change . Advanced Care Planning Address: Comfort care Pain: Moderate Symptom management: Delirium Palliative Subjective Palliative Care Daily Responde: Family/Proxy, Team Brief History 60 yo patient with sepsis picture and altered mental status with hx dementia and hx of CVA, DM, HTN, CRI and bilateral AKA and decub ulcers- She has been a resident of [facility] for the past 10 months or so. She has a history of dementia with pseudo-bulbar component hypertension diabetes multiple CVAs status post bilateral amputations AKA for peripheral vascular disease history of depression and chronic pain back and question of phantom limb history of DVT PEs renal insufficiency anemia and chronic constipation. She has been managed by Dr. Pb Flores at [facility]. Her son, Federico lives in [place], had cared for her for a few years in his home then later in facility in [place] but then transferred to [place]. There is mention of chronic diarrhea but no mention of colitis but she is on budesonide ER as one of her outpatient meds. Other medications that she has been on include gabapentin 200 mg twice a day hydromorphone oxycodone and just prior to admission her fentanyl patch of 25 g that she had been on for the past 10 months was discontinued due to deterioration of mental status Patient/Family Concerns Her son wants her to be comfortable and he otherwise recognizes severity of disease and her decline Subjective Basically unresponsive at this time. Had been awake and able to speak nonsensical to nursing staff Staff identifies that she is comfortable at rest but with attempts of turning and any movement she moans in pain Palliative Performance Scale PPS Patient Status: Baseline PPS Ambulation: Mainly Sit/Lie PPS Activity: Unable to do any activity PPS Self-Care: 2 person assist PPS Intake: Minimal to sips PPS Conscious Level: Full or drowsey, +/- confusion Performace Scale: 30% Objective Findings Exam Vital Sign - Last Date Time Temp Pulse Resp B/P Pulse Ox O2 Delivery O2 Flow Rate FiO2 07/15/16 09:26 36.8 100 18 165/95 96 Room Air 07/15/16 05:51 1.00 Intake and Output 07/14/16 07/14/16 07/15/16 Cumulative From/Thru 15:00 23:00 07:00 07/08/16 22:05 - 07/15/16 06:17 Intake Total 858 ml 0 ml 4854 ml Output Total 4 ml Balance 858 ml 0 ml 4850 ml Intake Oral 0 ml 0 ml 50 ml IV Total 858 ml 4774 ml Tube Irrigant 30 ml Output Urine Total 4 ml # Voids 4 3 30 # Bowel Movements 1 2 Objective Pale, comfortably sleep and basically unarousable General: Minimally responsive HEENT: Atraumatic, EOMI Heart: Exam Unremarkable Lungs: Diminished Abdomen: Soft Extremities: Other (b/l amputations) Lab/Diagnostics Lab and Imaging results reviewed in detail in EMR. Creatinine 2.18 hemoglobin 8.3 Patient/Family Conference Members Present Family Members Present Telephone call to Federico Discussion/Goals of Care Discussion Reviewed case with staff and with Federico patient's son. Mental status deterioration etiology unclear in a patient with history of multiple CVAs. Son is suspicious for another. He accepts the severity of her disease as well as deep anterior rating quality of life. His main goal is comfort with adequate pain management-patient had been on fentanyl patch now discontinued. May try half dose of 12.5 g patch for patient 's comfort. Constipation has been a problem including with the narcotics. Apparently also history of diarrhea with this as a diagnosis in chart and patient has been on budesonide. No documentation of colitis noted Nutrition a problem in that he has been nothing by mouth with decrease in mental status. She is now been authorized to have thickened liquids but by mouth intake is very poor and after 1 or 2 bites she declines further. Reviewed CODE STATUS DNR/DNI but also reviewed concept of comfort care and potentially involving hospice. He agrees to this. He also agrees to readmission to [facility] when medically stable. Palliative Care counselled: Time spent Total time [75 ] minutes; >50% face to face with patient and/or family, providing counselling regarding plans and recommendations, and in care coordination with his/her medical teams. I also spent an additional [ ] minutes counseling for advanced care planning with the patient/the patients family/the surrogate decision maker. copies to: Lizbeth Flores MD, Julia Gonzales MD Jul 15, 2016 14:25
--- NOTE | 2016-07-15 15:05 | NUR ---
NUTRITION FOLLOW-UP: ASSESS: 60YO F admit with SOB, likely new CHF, UTI, ALIYAH--fluid overload. Pt with poor prognosis, palliative care involved with notes indicating pt wishes of no nutrition support. Pt remains pleasantly confused. PMHX: Dementia, HTN, DMII ,CVA, DVT, PE, hyperlipidemia, BKA,AKA LABS: Reviewed. BUN 32, Cr 1.57, Glu 100, Ca 7.9, Mg 1.4, T-bili 1.5, AST 152, ALT 66, Albumin 1.8 MEDS: Reviewed. Coumadin, Senna, Lasix GI:1 BM 07/15 SKIN: Ajit 9; no pressure injuries per real estate associate attorney notes CURRENT WTS: 80 kg, BMI 53.8 Admit Wt: 89 kg (wt loss since admit - likely fluids) DIET: Stimulation. PO bites-25% EST. NEEDS: OBESITY/BKA/AKA (-21.9%) Kcals: 1400-1540kcal (20-22kcal/ABW) Pro: 55-70g/day (0.8-1.0g/kg ABW) NUTRITION DIAGNOSIS: 1.) Chew/swallowing difficulty related to decreased cognition as evidenced by modified diet texture per ST.---PERSISTS 2.) Inadequate oral intake related to mental status as evidenced by dementia. NUTRITION INTERVENTION: 1.) Continue current diet as ordered by ST 2.) Will add Gelatien TID MONITOR / EVAL: PO, labs, texture tolerance. Will continue to monitor per high nutrition risk guidelines
--- NOTE | 2016-07-15 16:02 | PROG NOTE ---
[address] [address] PROGRESS NOTE PATIENT: ALVARADO NEAL : 1955 MR#: [id number] ADMIT: 07/09/2016 JOB ID: [id number] DATE: 07/15/2016 INFECTIOUS DISEASE FOLLOW UP NOTE: REASON FOR FOLLOW UP: Complicated E coli urinary tract infection and possible pneumonia in a demented woman. INTERVAL HISTORY: Today, the patient is much less responsive than usual. Ordinarily the patient is awake and will answer questions with a hi or fine, depending on what is asked. Today the patient is awake and her eyes seem fixated on objects not necessarily in the room or not readily apparent to the examiners. She does not respond to any questions other than to moan when she is moved or repositioned. She does not seem aware of her surroundings at this point. Temperature is 36.8, she remains afebrile. Recall that she was febrile as recently as two days ago. Pulse 100, respiratory rate 18, blood pressure 165/95. She does not appear to be in distress, but as noted, she is not oriented or responsive at all. Eyes without conjunctival sclerae. Oral cavity negative. Lungs: Decreased breath sounds bilaterally. No focal findings. Of significance, cardiac tones are regular today. Abdomen relatively benign. The patient has Kalpana with in her intertriginous areas. LABORATORIES: Include white count 9300, platelet count 178,000, creatinine 1.57. Her AST has dropped from yesterday's 314 to 152 today. Her ALT is down from 82 to 66. BNP is still greater than 70,000. Albumin still low 1.8. No new cultures are available. Recall that she had an E coli in the urine which was quite susceptible to cefepime and that she has been on treatment now for six days for that. Most recent chest x-ray was done yesterday, showed decrease but not resolved bilateral lower lobe opacities consistent with bronchopneumonia. IMPRESSION: This is an unfortunate woman with a rather premature dementia who has a grossly abnormal mental status even at baseline apparently. She presented from the long term with some bilateral infiltrates as well as what appeared to be a complicated urinary tract infection with leukocytosis, fever, pyuria and positive urine cultures. The chest x-ray showed infiltrate though we had no identifiable organism. Since admission, the patient has improved at least in terms of her infectious parameters but her mental status is still grossly abnormal. A major problem is that this patient does not like to be repositioned and appears to suffer when such repositioning or cleaning is done. Dr. Simon of Palliative Care has been in contact with her son today and there are discussions underway about possible transition to comfort care back to the long term. RECOMMENDATIONS: 1. Yesterday, we discontinued the Flagyl and today because of a shortage of drug and a lack of evidence that it is needed, we will go ahead and discontinue the doxycycline. 2. I would reasonably continue the cefepime through tomorrow and then stop it as we would have completed a week of appropriate therapy. 3. Dr. Clark has started fluconazole for the patient because of multiple areas of candidiasis and I think that is very reasonable. The exact duration of this so I will leave to Dr. Clark. 4. ID will go ahead and sign off on this patient today. Thank you very much for this consultation.
--- NOTE | 2016-07-15 19:21 | NUR ---
Shift Note Pt remains on bedrest, turned Q2 hours to prevent b/d. She remains inc of bladder, no BM today. 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 Pt taking bites of pudding thick juice, some ice chips. She has slept most of shift. She does grimace and say, "Ow, ow, ow." when positioned but shortly after will fall asleep and appears comfortable. Analgesic given x1 this shift. 1430 Xanax held due to pt's inability to rouse enough to swallow safely as was 1700 Warfarin this evening. Blood sugar this AM 110. Pt remains on RA, 02 sats 93-95%. Currently resting comfortably, bed in lowest, locked position and call light in reach.
--- NOTE | 2016-07-15 20:55 | PCM.PNMED ---
Subjective Date of Service Jul 15, 2016 Subjective Patient is less responsive today and is quite somnolent. She appears comfortable. Exam Vital Signs Vital Sign - Last Date Time Temp Pulse Resp B/P Pulse Ox O2 Delivery O2 Flow Rate FiO2 07/15/16 19:52 36.6 86 14 143/81 94 Room Air 07/15/16 05:51 1.00 Intake and Output 07/14/16 07/14/16 07/15/16 Cumulative From/Thru 15:00 23:00 07:00 07/08/16 22:05 - 07/15/16 06:17 Intake Total 858 ml 0 ml 4854 ml Output Total 4 ml Balance 858 ml 0 ml 4850 ml Intake Oral 0 ml 0 ml 50 ml IV Total 858 ml 4774 ml Tube Irrigant 30 ml Output Urine Total 4 ml # Voids 4 3 30 # Bowel Movements 1 2 Exam General: Patient is resting comfortably on her back. However, she continues to be uncomfortable with any intervention. She has refused a straight cath for urinalysis and urine culture. HEENT: Head is atraumatic normocephalic. Eyes: Pupils are equally round and reactive to light and accommodation. Extraocular muscles are intact. Sclera are white anicteric. Subconjunctival mucosa is pink. Ears and nose are unremarkable. Oropharynx: There are no mucosal lesions, there is no thrush, there is no pharyngitis. However, her mucosa is dry. Neck: Is supple, there are no nodes, or masses or tenderness. Chest: Her breath sounds are clearer to auscultation. Heart: Rate, rhythm is regular. There is no new murmur, rub or gallop. Abdomen: Good bowel sounds are present. Abdomen is obese, soft, nontender, no organomegaly or masses were appreciated. There is skin breakdown in the folds and creases of her skin secondary to Kalpana. Extremities: Left upper extremity edema has improved considerably. There is still extensive ecchymosis of the left upper extremity unchanged from admission. There is blotchy ecchymosis and focal bruising on the right upper extremity There is no cellulitis, no rash evident. There is no weeping edema Skin: There is some skin breakdown on her back on the right side for the size of a half-dollar. This was present on admission. Neurologic: There are no focal neurological deficits. Cranial nerves II through XII are intact. There are no sensory or motor deficits. Patient is pleasantly confused. She is more somnolent and less responsive today. Psychiatric: Patients mood is calm and shows no sign of agitation. She appears quite comfortable. Genital: Deferred Rectal: Deferred Lab and Diagnostics Result Diagram: 07/15/1652907/15/16529 Microbiology Name: ALVARADO NEAL Age/Sex: 60/F Attend Dr: AMRGUERITE,ED Acct: [id number] Unit: [id number] Status: REG ER Location: SED Re07/08/16 Disch: Specimen: [id number] Collected: 07/08/16 Status: COMP Req#: [id number] Received: 07/08/16 Source: NOSE Sp Desc : Subm Dr: MARGUERITE,ED Ordered: RAPID FLU IRS Comments: Collected by Nurse/Unit? Y/N Y Procedure Result Verified Site Microbiology [facility] INFLUENZA RAPID AG SCREEN Final 07/08/16 RESULT NEGATIVE FOR INFLUENZA TYPE A AND B This rapid assay is a screen test only for Influenza A&B and does not definitively rule out the presence of FLU A & B or other respiratory viral pathogens. The assay's sensitivity varies on the specimen type submitted. Nasal washes are optimum. Recommend respiratory viral cultures and DFA to confirm negative screens and rule out other viral pathogens. Per CDC, the sensitivity of this method is approximately 50% for H1N1. A negative result does NOT rule out Novel H1N1 (Swine Flu) Name: ALVARADO NEAL Arianna Age/Sex: 60/F Attend Dr: Patrick Clark Acct: [id number] Unit: [id number] Status: ADM IN Location: [facility] 3023-1 Re07/09/16 Disch: Specimen: [id number] Collected: 07/09/16 Status: RES Req#: [id number] Received: 07/09/16 Source: RANDOM Sp Desc : Subm Dr: DOC,ED MD Ordered: URINE CULT Procedure Result Verified Site Microbiology ANKIT CULT URINE Preliminary 07/10/16-828 PRELIMINARY ID GRAM NEGATIVE AG ID AND SENS TO FOLLOW COLONY COUNT/QUANTITY >100,000 CFU/ml X-Rays, CTs and MRIs Chest Xray Interpretation: Infiltrate including the left lung. Low lung volumes bilaterally. CHF. View: Portable, 1 view Interpretation / Wet Read by: Wet read ED physician 12-lead ECG ECG Interpretation: Normal sinus rhythm rate 77 Flattened T waves in III, AvR, AvL Time: 23:15 Interpreted by: ED physician Normal ECG Interpretation: No acute ischemic changes Cardiac Echo Impressions Echocardiogram Report Name: ALVARADO NEAL Study Date: 07/10/2016 Height: 48 in Hospital Exam Location: [facility] Weight: 196 lb Gender: Female BSA: 1.6 m2 : 1955 Age: 60 yrs BP: 167/57 mmHg Reason For Study: SOB, Fluid overload Ordering Physician: Beronica Fuentes Performed By: Zhanna Neil Referring Physician: Dr. Pb Flores Interpretation Summary Left ventricular systolic function is low normal with the ejection fraction is estimated to be 55-60%. There is a flattened septum that is consistent with a right ventricular pressure overload state but there are no other obvious focal wall motion abnormalities. Left ventricular wall thickness is at the upper limits of normal with diastolic parameters suggesting a pseudonormalization pattern, consistent with elevated filling pressures. The right ventricle is moderately dilated and right ventricular systolic function is moderately reduced. Right ventricular systolic pressure is estimated to be at least 47 mmHg plus the clinically estimated CVP which cannot be estimated on this exam. The left atrium is severely dilated and the right atrium is moderately dilated. There is mild mitral regurgitation and mild tricuspid regurgitation but no other significant valvular heart disease. The ascending aorta is mildly enlarged. Assessment & Plan Pt is a 60 y/o female who resides at [facility] w/ a hx of pseudobulbar dementia, HTN, T2DM diet controlled, CVA on warfarin, DVT, PE, who presented to the ED via EMS due to increasing SOB onset today. # Shortness of breath, appears to be due to HCAP and congestive heart failure, present on admission, acute and ongoing - Patient's outpatient records have no indication of past CHF diagnosis - x-ray has cephalization pattern - ProBNP is 70,000 (in setting of kidney failure, this is still high) - Crackles heard on auscultation B/L - Echocardiogram complete (see report above) - Considered pneumonia initially, however patient was afebrile, x-ray showed CHF -like picture, lactic acid normal, WBC only 10.5 but did have left shift. Initially CHF was considered more likely than pneumonia. However, patient's white count george to over 20,000 the following day. - Vanco and Zosyn given in the ED x1. Because of the nephrotoxicity and the clinical picture of CHF, not pneumonia, Vancomycin and Zosyn. Were discontinued and ceftriaxone started. However. Due to the left shift on the CBC differential on admission and white blood cell count over 20,000 the antibiotics were restarted with vancomycin IV and, instead of Zosyn, cefepime 2 g IV every 12 hours and Flagyl 500 mg IV every 12 hours. These were started on 07/10/2016. Meanwhile ceftriaxone was discontinued. -Dr. Cortes was consulted for infectious disease and substituted doxycycline for vancomycin as the MRSA screen was negative. Agree with Dr. Cortes's impression that patient will possibly respond to IV antibiotic therapy. - Patient was prescribed Augmentin 7 days ago in the outpatient. Unknown duration or what it was treating. - Influenza negative - Furosemide 40mg IV ordered x1 in the emergency room. This has been continued daily -The repeat chest x-ray on 07/14/2015 shows improvement in bibasilar bronchopneumonia.. # Urinary tract infection, present on admission, acute secondary to Escherichia coli sensitive to ceftriaxone and cefepime - Pt received vanco and Zosyn in the ED. This was changed to ceftriaxone. However, due to the marked elevation in white blood cell count and expansion of Vancomycin cefepime and Flagyl will discontinue ceftriaxone. - Urine culture shows greater than 100,000 colonies per milliliter of Escherichia coli sensitive to ceftriaxone and cefepime. Patient continued on cefepime. # Acute kidney injury, present on admission - On admission BUN of 53; Creatinine 2.18. on 06/25/16 outpatient: BUN was then 36 and Creatinine was 2.04. (On 10/2015 BUN was 31, creatinine 0.91) renal function . Patient's renal function appears to be close to a new baseline now , with a BUN of 32 and a creatinine of 1.57 on 07/15/2016 - Patient had fluid overload due to fluid resuscitation of the time of admission. However, IV fluids have been changed to maintenance fluids as patient's by mouth intake is poor - No sodium/potassium abnormalities - Will monitor and if no improvement will consider nephrology consultation. # Diabetes type 2 not on medication, present on admission, chronic - A1c was 4.5 taken 06/25/16 (seen on review of outpatient records). A1c decrease likely from kidney disease -Patient was held nothing by mouth for 3 days per speech therapy. On 2016 speech therapy has allowed the patient to advance her diet to a Stim diet. A call was placed to the patient's son regarding her clinical situation. He does not want her to be artificially fed according to the charge nurse Halley who spoke with patient's son. Palliative care has been consulted and will follow up on 07/15/2015 to determine how aggressive son would like us to be. # Tinea cruris -Patient has skin breakdown in skin folds secondary to candidiasis -This is likely related to broad spectrum antibiotic use and diabetes mellitus and morbid obesity with deep skin folds and immobility -Continue Diflucan 200 mg IV daily. -Consider discontinuing doxycycline. # History of CVA, present on admission, chronic - anticoagulated on warfarin - supratherapeutic INR of greater than 6 - warfarin per pharmacy on hold -Vitamin K 5 mg IV to be given today # Chronic low back pain, present on admission - Patient has opiate habituation. Will continue as needed. Other chronic conditions present on admission: Morbid obesity Essential HTN Hx of right BKA, left above the knee amputation depression chronic pain pseudobulbar palsy dependent edema left stump anxiety low back pain with sciatica PVD Hx of encephalopathy Chronic DVT of LE GERD Hyperlipidemia H/O ischemic multifocal multiple vascular territories stroke Stomatitis Anemia of chronic illness Hx thoracic spine surgery Hx stroke right shoulder surgery cataract surgery - Acetaminophen as needed for mild pain/fever/headache - Bowel regimen as needed - Antiemetic as needed -Due to patient's numerous medical problems as listed above and current poor condition I have consulted palliative care and spoke with Amber at length, who has spoken to the patient's son at length, about the patient's care. Dr. Simon of Palliative care has revisited the patient again today and recommends the following: -DPOA/Advanced Directives/POLST: confirmed that patient's current POLST: DNR/DNI , comfort care. We will continue with treatment with antibiotics until course completed. We will continue to encourage by mouth intake to support this hydration and nutrition.. Goal be to discharge back to [facility] with goal of management at the correction optimizing treatments aimed at comfort. Hospice to be involved if helpful for patient care management CODE STATUS: DNR/DNI patient is essentially on comfort care, except for IV antibiotics which are to be completed as recommended by Dr. Cortes. Dr. Lima will follow in a.m. Pain Evaluation: Adequate Pain Control GI Prophylaxis: H2 quinn VTE Prophylaxis: Theraputic Anticoag with Warfarin Resuscitation Status: DNR/DNI:Do Not Resuscitate/Intubate Patrick Clark MD Jul 15, 2016 20:55
[2016-07-16] MEDS: Cefepime Inj 1,000 MG in Dextrose 5% Minibag Plus 50 ML IV SCH ×2 (00:06→13:01)
[2016-07-16] MEDS: D5 0.45% NaCl + KCl 20 mEq/L 1,000 ML IV SCH ×2 (00:39→13:12)
[2016-07-16 01:10] VITALS: BP 146/79; PULSE 91; RESP 13; O2SAT 94
[2016-07-16 04:42] VITALS: BP 129/71; PULSE 101; RESP 20; O2SAT 96
--- NOTE | 2016-07-16 06:08 | NUR ---
Somnolence/Oral meds unsafe to give Pt has been somnolent upon the start of shift, Determined PO medication unsafe to administer due to pt's lethargic situation. IV fluids and IV ABx administered as scheduled. Q2 turns provided. Hourly rounding done and pt has slept most of the night.
[2016-07-16 06:25] LABS: Unsaturated Iron Binding 31.3 ug/dL
[2016-07-16 06:52] LABS: INR 1.52 ratio
[2016-07-16] MEDS: ALPRAZolam 0.5 mg Tablet PO SCH ×2 (08:30→13:03)
[2016-07-16 09:35] VITALS: BP 139/83; PULSE 91; RESP 13; O2SAT 95
[2016-07-16] MEDS: Pantoprazole 4 mg/mL 10 mL Inj IVPUSH SCH (09:41)
[2016-07-16] MEDS: Furosemide 10 mg/mL 4 mL Inj IVPUSH SCH (09:41)
[2016-07-16] MEDS: Nystatin 100,000 Unit/Gm 15 Gm Powder TOPICAL SCH (09:43)
[2016-07-16] MEDS: HYDROmorphone 1 mg/mL Inj IVPUSH PRN ×2 (09:53→14:39)
[2016-07-16 10:51] VITALS: PULSE 96
--- NOTE | 2016-07-16 11:32 | PCM.PHAPRO ---
Progress Warfarin Management by Pharmacy Indication: DVT/PE CHADS2-VASc: 5 Home Dose: Warfarin 1 mg Thursday, 0.5 mg AOD (per [facility] [phone] ) INR Goal: 2-3 Duration: Unknown Vit K given: 5 mg IV on 07/13/16 Anticoagulation Trends Lab Date Result Dose INR 07/11/16 3.37 Held INR 07/12/16 4.32 Held INR 07/13/16 6.61 Held INR 07/14/16 1.73 1 mg INR 07/15/16 1.55 1 mg INR 07/16/16 1.52 Therapeutic bridge therapy: None Assessment/Plan - Subtherapeutic INR with no doses given while inpatient. Recent IV vitamin K administration on 07/13 which would have lingering effects on INR. ABX to be completed today for suspected pulmonary infection. - Will continue warfarin 1 mg this evening. Anticipated effects of IV vitamin K to dissipate now and would recommend higher (1.5 - 2 mg) if INR does not begin to up-trend tomorrow. -Pharmacy to monitor INR/CBC/signs of bleeding while inpatient. Renay Dumont Dwaine Pharm.D. Nilton Niño Jul 16, 2016 11:32
--- NOTE | 2016-07-16 12:38 | PCM.DIMED ---
Discharge Instructions Date of Service Jul 16, 2016 Dates of Hospitalization Jul 09, 2016 at 02:33 Discharge Diagnosis Discharge Diagnosis #HCAP #ADHF #UTI #ALIYAH #Tinea cruris Medication Instructions treat with fluconazole for tinea cruris for 10more days Patient Instructions You were hospitalized with multiple problems, difficulty of breathing due to pneumonia, heart failure. Infections also in urine, kidney injuries, fungal infection. Instruction> Please note that pt is essentially on comfort care, Code status remained DNR/ DNI during hospitalization, please limit invasive intervention, hospitalization. Please continue to encourage by mouth intake to support this hydration and nutrition(Stimulation diet). Goal be to discharge back to [facility] with goal of management at the [facility] optimizing treatments aimed at comfort. Hospice to be involved if helpful for patient care management Follow-up plan Please follow up with as needed in 2-4weeks Follow-up with PCP in: 2 weeks Scott Lima MD Jul 16, 2016 12:37
[2016-07-16] MEDS ORDERED: FLUC200T5 PO (12:39)
[2016-07-16] MEDS: Fluconazole Inj 200 MG in IV Premix 1 EACH IV SCH (13:02)
[2016-07-16 14:33] VITALS: BP 120/79; PULSE 94; RESP 12; O2SAT 93
--- NOTE | 2016-07-16 15:02 | NUR ---
Arranged BLS transport for 1645 via [facility] returning to [facility]. PCS form completed and given to COUNTERINTELLIGENCE ANALYST. Updated COUNTERINTELLIGENCE ANALYST
--- NOTE | 2016-07-16 15:42 | NUR ---
Social Work-discharge: Data:EMR Reviewed. Pt is on day 7 of hospitalization for fluid overload per H&P. Pt is medically stable to discharge today. Pt is on comfort care and will return to [facility]. JORGE placed a call to UR specialist and she is in agreement for BLS transport. UR specialist arranged transport for 1644 via BLS with [facility]. SW informed [facility] admissions at [facility] of discharge and faxed orders. JORGE created packet. JORGE placed a call to son Federico to inform him of discharge. JORGE explained that SW cannot guarantee that insurance will cover the cost of transport, SW agreeable to proceed. JORGE explained transport has been set up for 1644. RN,UC,pt/family, and [facility] all updated and agreeable to plan. Assessment:pt who will return to SNF. Plan:Pt to discharge back to [facility] on comfort care today via BLS at 1644. RN,UC,pt/family, and [facility] all updated and agreeable to plan. СЕРГЕЙ Cassidy
--- NOTE | 2016-07-16 17:40 | NUR ---
Discharge Nursing note: Patient was discharged to [facility] at 1740. Patients IV was removed intact. Discharged packet was sent with S drivers. Patient was Transferred to a stretcher by S team and nurse and she was transported to the SNF by S team in [facility] transport vehicle. Report was called to Nurse "Eunice" at [place] who will be taking over Patients care.
--- NOTE | 2016-07-17 17:56 | PCM.DC.MED ---
Discharge Summary Date of Service Jul 16, 2016 Dates of Hospitalization Date of Hospital Admission Jul 09, 2016 at 02:33 Date of Discharge: Jul 16, 2016 Providers: Admitting Physician: Bhavna Vazquez MD Primary Care Physician: Lizbeth Flores MD Attending Physician: Patrick Clark MD Diagnosis at Time of Discharge Diagnosis at Time of Discharge #HCAP #ADHF #UTI #ALIYAH #Tinea cruris # Diabetes type 2 # History of CVA # Chronic low back pain Other chronic conditions present on admission: Morbid obesity Essential HTN Hx of right BKA, left above the knee amputation depression chronic pain pseudobulbar palsy dependent edema left stump anxiety low back pain with sciatica PVD Hx of encephalopathy Chronic DVT of LE GERD Hyperlipidemia H/O ischemic multifocal multiple vascular territories stroke Stomatitis Anemia of chronic illness Hx thoracic spine surgery Hx stroke right shoulder surgery cataract surgery Procedures XRay, CTs & MRIs Chest Xray Interpretation: Infiltrate including the left lung. Low lung volumes bilaterally. CHF. View: Portable, 1 view Interpretation / Wet Read by: Wet read ED physician ECG 12 Lead ECG Interpretation: Normal sinus rhythm rate 77 Flattened T waves in III, AvR, AvL Time: 23:15 Interpreted by: ED physician Normal ECG Interpretation: No acute ischemic changes Cardiac Echo Impression Echocardiogram Report Name: ALVARADO NEAL Study Date: 07/10/2016 Height: 48 in Hospital Exam Location: [facility] Weight: 196 lb Gender: Female BSA: 1.6 m2 : 1955 Age: 60 yrs BP: 167/57 mmHg Reason For Study: SOB, Fluid overload Ordering Physician: Beronica Fuentes Performed By: Zhanna Neil Referring Physician: Dr. Pb Flores Interpretation Summary Left ventricular systolic function is low normal with the ejection fraction is estimated to be 55-60%. There is a flattened septum that is consistent with a right ventricular pressure overload state but there are no other obvious focal wall motion abnormalities. Left ventricular wall thickness is at the upper limits of normal with diastolic parameters suggesting a pseudonormalization pattern, consistent with elevated filling pressures. The right ventricle is moderately dilated and right ventricular systolic function is moderately reduced. Right ventricular systolic pressure is estimated to be at least 47 mmHg plus the clinically estimated CVP which cannot be estimated on this exam. The left atrium is severely dilated and the right atrium is moderately dilated. There is mild mitral regurgitation and mild tricuspid regurgitation but no other significant valvular heart disease. The ascending aorta is mildly enlarged. Brief History H&P performed by Dr. VAZQUEZ on July 09 Pt is a 60 y/o female who resides at [facility] w/ a hx of pseudobulbar dementia, HTN, T2DM diet controlled, CVA on warfarin, DVT, PE, who presented to the ED via EMS due to increasing SOB onset today. She is sent from her senior care with concern for pneumonia and fluid overload. She c/o left chest, left back, and left abdominal pain. There is no documented history of CHF in the senior care documentation nor in [facility]. Patient is demented but she did know that she takes Dilaudid TID and would like to make sure that she gets her pain medication. In light of her increasingly concerning leukocytosis, and poor prognosis, palliative care is asked to help intervene with her family, to make sure that they are aware of her condition. At the request of Dr. Clark, a phone call was placed to Federico Tran in [place], the patient's son. He was aware of his mother's hospitalization and that her condition is tenuous. Hospital Course Pt is a 60 y/o female who resides at [facility] w/ a hx of pseudobulbar dementia, HTN, T2DM diet controlled, CVA on warfarin, DVT, PE, who presented to the ED via EMS due to increasing SOB onset today. # Shortness of breath, appears to be due to HCAP and congestive heart failure, present on admission, acute and ongoing - Patient's outpatient records have no indication of past CHF diagnosis - x-ray has cephalization pattern - ProBNP is 70,000 (in setting of kidney failure, this is still high) - Crackles heard on auscultation B/L - Echocardiogram complete (see report above) - Considered pneumonia initially, however patient was afebrile, x-ray showed CHF -like picture, lactic acid normal, WBC only 10.5 but did have left shift. Initially CHF was considered more likely than pneumonia. However, patient's white count george to over 20,000 the following day. - Vanco and Zosyn given in the ED x1. Because of the nephrotoxicity and the clinical picture of CHF, not pneumonia, Vancomycin and Zosyn. Were discontinued and ceftriaxone started. However. Due to the left shift on the CBC differential on admission and white blood cell count over 20,000 the antibiotics were restarted with vancomycin IV and, instead of Zosyn, cefepime 2 g IV every 12 hours and Flagyl 500 mg IV every 12 hours. These were started on 07/10/2016. Meanwhile ceftriaxone was discontinued. -Dr. Cortes was consulted for infectious disease and substituted doxycycline for vancomycin as the MRSA screen was negative. Agree with Dr. Cortes's impression that patient will possibly respond to IV antibiotic therapy. - Patient was prescribed Augmentin 7 days ago in the outpatient. Unknown duration or what it was treating. - Influenza negative - Furosemide 40mg IV ordered x1 in the emergency room. This has been continued daily -The repeat chest x-ray on 07/14/2015 shows improvement in bibasilar bronchopneumonia.. # Urinary tract infection, present on admission, acute secondary to Escherichia coli sensitive to ceftriaxone and cefepime - Pt received vanco and Zosyn in the ED. This was changed to ceftriaxone. However, due to the marked elevation in white blood cell count and expansion of Vancomycin cefepime and Flagyl will discontinue ceftriaxone. - Urine culture shows greater than 100,000 colonies per milliliter of Escherichia coli sensitive to ceftriaxone and cefepime. Patient continued on cefepime. # Acute kidney injury, present on admission - On admission BUN of 53; Creatinine 2.18. on 06/25/16 outpatient: BUN was then 36 and Creatinine was 2.04. (On 10/2015 BUN was 31, creatinine 0.91) renal function . Patient's renal function appears to be close to a new baseline now , with a BUN of 32 and a creatinine of 1.57 on 07/15/2016 - Patient had fluid overload due to fluid resuscitation of the time of admission. However, IV fluids have been changed to maintenance fluids as patient's by mouth intake is poor - No sodium/potassium abnormalities - Will monitor and if no improvement will consider nephrology consultation. # Diabetes type 2 not on medication, present on admission, chronic - A1c was 4.5 taken 06/25/16 (seen on review of outpatient records). A1c decrease likely from kidney disease -Patient was held nothing by mouth for 3 days per speech therapy. On 2016 speech therapy has allowed the patient to advance her diet to a Stim diet. A call was placed to the patient's son regarding her clinical situation. He does not want her to be artificially fed according to the charge nurse Halley who spoke with patient's son. Palliative care has been consulted and will follow up on 07/15/2015 to determine how aggressive son would like us to be. # Tinea cruris -Patient has skin breakdown in skin folds secondary to candidiasis -This is likely related to broad spectrum antibiotic use and diabetes mellitus and morbid obesity with deep skin folds and immobility -Continue Diflucan 200 mg IV daily. -Consider discontinuing doxycycline. # History of CVA, present on admission, chronic - anticoagulated on warfarin - supratherapeutic INR of greater than 6 - warfarin per pharmacy on hold -Vitamin K 5 mg IV to be given today # Chronic low back pain, present on admission - Patient has opiate habituation. Will continue as needed. Other chronic conditions present on admission: Morbid obesity Essential HTN Hx of right BKA, left above the knee amputation depression chronic pain pseudobulbar palsy dependent edema left stump anxiety low back pain with sciatica PVD Hx of encephalopathy Chronic DVT of LE GERD Hyperlipidemia H/O ischemic multifocal multiple vascular territories stroke Stomatitis Anemia of chronic illness Hx thoracic spine surgery Hx stroke right shoulder surgery cataract surgery - Acetaminophen as needed for mild pain/fever/headache - Bowel regimen as needed - Antiemetic as needed -Due to patient's numerous medical problems as listed above and current poor condition I have consulted palliative care and spoke with Amber at length, who has spoken to the patient's son at length, about the patient's care. Dr. Simon of Palliative care has revisited the patient again today and recommends the following: -DPOA/Advanced Directives/POLST: confirmed that patient's current POLST: DNR/DNI , comfort care. We will continue with treatment with antibiotics until course completed. We will continue to encourage by mouth intake to support this hydration and nutrition.. Goal be to discharge back to [facility] with goal of management at the senior care optimizing treatments aimed at comfort. Hospice to be involved if helpful for patient care management Patient had complicated hospital course with hospital acquired pneumonia, acute decompensated heart failure, urinary tract infection, acute kidney injury. After the discussion with family as mentioned above, CODE STATUS changed to DNR/ DNI, comfort care. Pt was being discharged back to [facility] on comfort care after finishing cefepime last dose on 07/17 Exam Vital Signs (Last) Date Time Temp Pulse Resp B/P Pulse Ox O2 Delivery O2 Flow Rate FiO2 07/16/16 14:33 36.7 94 12 120/79 93 Room Air 07/15/16 05:51 1.00 Exam NAD, comfortably laying down on the bed no JVD, MMM, no LAD RRR, nl s1, s2 no mrg CTAB, no w,c S,ND,NT,normoactive BS+ warm, no edema, pulses 2/2 Test 07/08/16 22:15 07/09/16 00:35 07/11/16 06:25 07/12/16 11:40 Hold Purple Top Tube Received (Received) Activated Partial Thromboplast Time 35.6sec (22.8-33.0) Hold Blue Top Tube Received (Received) Lactic Acid Level 1.0mmol/L (0.4-2.0) Troponin T 0.140ug/L (0.0-0.011) Hold Red Top Tube Received (Received) Hold [place] Top Tube Received (Received) Hold Shel[place] Top Tube Received (Received) Urine Color Yellow (YELLOW) Urine Appearance Hazy (CLEAR,HAZY) Urine pH 6.0 (5.0-8.0) Urine Specific [place] 1.020 (1.003-1.035) Urine Protein 30mg/dL (NEG,TRACE) Urine Glucose (UA) Negativemg/dL (NEGATIVE) Urine Ketones Tracemg/dL (NEGATIVE) Urine Occult Blood Small (NEGATIVE) Urine Nitrite Positive (NEGATIVE) Urine Bilirubin Negative (NEGATIVE) Urine Urobilinogen Normalmg/dL (NORMAL) Urine Leukocyte Esterase Small (NEGATIVE) Urine RBC 3-10/hpf (0-2) Urine WBC >50/hpf (0-5) Urine Epithelial Cells Moderate/hpf (NONE-MOD) Urine Crystals None seen (NONE SEEN) Urine Bacteria Many/hpf (NONE-FEW) Urine Hyaline Casts None/lpf (NONE) Urine Granular Casts None seen (NONE SEEN) Urine Waxy Casts None seen (NONE SEEN) Urine Red Blood Cell Casts None seen (NONE SEEN) Urine White Blood Cell Casts None seen (NONE SEEN) Urine Mucus None seen (None Seen) Urine Trichomonas None seen (NONE SEEN) Urine Yeast None (NONE SEEN) Urinalysis Comment None Urine Culture Reflexed Indicated Phosphorus Level 3.1mg/dL (2.5-4.9) Procalcitonin 0.77ng/mL (See Comment) Random Vancomycin Level 28.7ug/mL Rx Prealbumin 3mg/dL (20-40) Test 07/15/16 05:30 07/16/16 05:53 White Blood Count 9.3th/mm3 (3.8-10.1) Red Blood Count 3.07mil/mm3 (3.90-5.20) Hemoglobin 8.4g/dL (12.0-15.6) Hematocrit 28.6% (35.0-46.0) Mean Corpuscular Volume 93.2fL (81-100) Mean Corpuscular Hemoglobin 27.4pg (27.0-35.0) Mean Corpuscular Hemoglobin Concent 29.4% (32.0-37.0) Red Cell Distribution Width 15.9% (12.3-15.4) Platelet Count 178bil/L (150-400) Neutrophils (%) (Auto) 69.7% (40-74) Lymphocytes (%) (Auto) 19.4% (14-46) Monocytes (%) (Auto) 8.7% (4-12) Eosinophils (%) (Auto) 1.2% (0-5) Basophils (%) (Auto) 0.4% (0-3) Sodium Level 141mEq/L (134-144) Potassium Level 3.6mEq/L (3.5-5.2) Chloride Level 103mEq/L (97-108) Carbon Dioxide Level 25mmol/L (18-29) Blood Urea Nitrogen 32mg/dL (8-27) Creatinine 1.57mg/dL (0.57-1.00) Estimat Glomerular Filtration Rate 48mL/min (>59) Glucose Level 110mg/dL (60-99) Calcium Level 7.9mg/dL (8.5-10.1) Magnesium Level 1.4mg/dL (1.6-2.6) Total Bilirubin 1.5mg/dL (0.0-1.2) Aspartate Amino Transf (AST/SGOT) 152U/L (0-50) Alanine Aminotransferase (ALT/SGPT) 66U/L (0-32) Alkaline Phosphatase 88U/L (25-165) Pro-B-Type Natriuretic Peptide > 79714zh/mL (0-287) Total Protein 6.1g/dL (6.4-8.4) Albumin 1.8g/dL (3.4-5.0) Reticulocyte Count,Calculated 2.1% (0.6-2.6) Prothrombin Time 16.4sec (8.1-12.5) Prothromb Time International Ratio 1.52ratio Iron Level 117ug/dL (35-150) Total Iron Binding Capacity 148ug/dL (250-450) Percent Iron Saturation 79%sat (15-50) Unsaturated Iron Binding 31.3ug/dL Ferritin 201ng/mL (13-150) Vitamin B12 Level >1999pg/mL (211-946) Microbiology Results Name: VALALVARADO Age/Sex: 60/F Attend Dr: SARAH EVERETT MD Acct: [id number] Unit: [id number] Status: REG ER Location: SED Re07/08/16 Disch: Specimen: [id number] Collected: 07/08/16 Status: ANNAMARIA Req#: [id number] Received: 07/08/16 Source: NOSE Sp Desc : Subm Dr: SARAH EVERETT MD Ordered: RAPID FLU IRS Comments: Collected by Nurse/Unit? Y/N Y Procedure Result Verified Site Microbiology [facility] INFLU[facility] RAPID AG SCREEN Final 07/08/16-2301 RESULT NEGATIVE FOR INFLUENZA TYPE A AND B This rapid assay is a screen test only for Influenza A&B and does not definitively rule out the presence of FLU A & B or other respiratory viral pathogens. The assay's sensitivity varies on the specimen type submitted. Nasal washes are optimum. Recommend respiratory viral cultures and DFA to confirm negative screens and rule out other viral pathogens. Per CDC, the sensitivity of this method is approximately 50% for H1N1. A negative result does NOT rule out Novel H1N1 (Swine Flu) Name: ALVARADO NEAL Arianna Age/Sex: 60/F Attend Dr: Patrick Clark Acct: [id number] Unit: [id number] Status: ADM IN Location: [facility] [place] [facility]23-1 Re07/09/16 Disch: Specimen: [id number] Collected: 07/09/16 Status: JELANI Woo#: [id number] Received: 07/09/16 Source: RANDOM Sp Desc : Subm Dr: MARGUERITE,SARAH WOO Ordered: URINE CULT Procedure Result Verified Site Microbiology ANKIT CULT URINE Preliminary 07/10/16 PRELIMINARY ID GRAM NEGATIVE AG ID AND SENS TO FOLLOW COLONY COUNT/QUANTITY >100,000 CFU/ml Discharge Medications Discharge Medications Ascorbic Acid (Vitamin C) 250 Mg Tab.chew 250 MG PO DAILY (Reported) Atorvastatin Calcium (Atorvastatin Calcium) 10 Mg Tablet 5 MG PO HS (Reported) Budesonide EC (Budesonide EC) 3 Mg Capsule 9 MG PO QAM (Reported) Cholecalciferol (Vitamin D3) (Vitamin D3) 50,000 Unit Capsule 50,000 UNIT PO Q Thursday (Reported) Clonidine (Clonidine) 0.1 Mg Tablet 0.2 MG PO TID (Reported) Diphenoxylate/Atropine (Diphenoxylate-Atrop 2.5-0.025) 2.5 Mg Tablet 1 EACH PO TID (Reported) Doxazosin Mesylate (Doxazosin Mesylate) 2 Mg Tablet 2 MG PO TID (Reported) Famotidine (Famotidine) 20 Mg Tablet 20 MG PO DAILY (Reported) Fenofibrate Nanocrystallized (Fenofibrate) 145 Mg Tablet 145 MG PO QPM (Reported ) Fentanyl 25 mcg/hr Patch (Fentanyl 25 mcg/hr Patch) 1 Each Patch.td72 25 MCG TOPICAL Q3 Days (Reported) Ferrous Sulfate (Iron) 325 Mg Tablet 325 MG PO DAILY (Reported) Fluconazole (Fluconazole) 200 Mg Tablet 200 MG PO DAILY Prescribed by: SCOTT AJ MD Folic Acid (Folic Acid) 1 Mg Tablet 1 MG PO DAILY (Reported) Furosemide (Furosemide) 40 Mg Tablet 40 MG PO MWF (Reported) Gabapentin (Gabapentin) 100 Mg Capsule 200 MG PO BID (Reported) Labetalol (Labetalol) 200 Mg Tablet 400 MG PO TID (Reported) hold for SBP<120 or HR<60 Lactobacillus Rhamnosus GG (Culturelle) 1 Each Capsule 1 EACH PO BID (Reported) Levothyroxine (Levothyroxine) 50 Mcg Tablet 50 MCG PO QPM (Reported) Loperamide (Loperamide) 2 Mg Capsule 4 MG PO QID (Reported) Magnesium Oxide (Magnesium Oxide) 400 Mg Tablet 800 MG PO BID (Reported) Multivitamin with Minerals (Myvitalife) 1 Each Capsule 1 EACH PO DAILY (Reported ) Simethicone (Gas-X) 80 Mg Tablet 80 MG PO QID (Reported) Trazodone (Trazodone) 150 Mg Tablet 150 MG PO HS (Reported) Triamcinolone Acetonide (Triamcinolone Acetonide) 60 Ml Lotion 1 APPLIC TOPICAL BID (Reported) Venlafaxine ER (Venlafaxine ER) 150 Mg Cap.er.24h 150 MG PO QAM (Reported) As needed Acetaminophen (Acetaminophen) 325 Mg Tablet 1-2 EACH PO Q4H PRN PRN For Pain ( Reported) Alprazolam (Alprazolam) 0.25 Mg Tablet 0.25 MG PO BID PRN PRN For Anxiety or Agitation (Reported) Bisacodyl (Dulcolax Rectal) 10 Mg Supp.rect 10 MG RC ONCE PRN PRN For Constipation (Reported) if no BM x 12 shifts Clonidine (Clonidine) 0.1 Mg Tablet 0.1 MG PO QID PRN PRN For HYPERtension ( Reported) for SBP>170 or DBP>90 Hydromorphone (Hydromorphone) 4 Mg Tablet 4-8 MG PO Q3H PRN PRN For Pain ( Reported) Magnesium Hydroxide (Milk of Magnesia) 400 Mg/5 Ml Oral.susp 30 ML PO ONCE PRN PRN For Constipation (Reported) if no BMx9 shifts Na Phos,M-B/Na Phos,Di-Ba (Fleet Enema) 133 Ml Enema 133 ML RC ONCE PRN PRN For Constipation (Reported) if no BM x 15 shifts Sucralfate (Sucralfate) 1 Gm Tablet 1 GM PO BID PRN PRN proctitis (Reported) oxyCODONE (oxyCODONE) 5 Mg Tablet 5-10 MG PO Q3H PRN PRN For Pain (Reported) Additional med instructions treat with fluconazole for tinea cruris for 10more days Followup Plan Disposition: [facility], assisted living facility Follow-up plan Please follow up with as needed in 2-4weeks Patient Instructions You were hospitalized with multiple problems, difficulty of breathing due to pneumonia, heart failure. Infections also in urine, kidney injuries, fungal infection. Instruction> Please note that pt is essentially on comfort care, Code status remained DNR/ DNI during hospitalization, please limit invasive intervention, hospitalization. Please continue to encourage by mouth intake to support this hydration and nutrition(Stimulation diet). Goal be to discharge back to [facility] with goal of management at the senior care optimizing treatments aimed at comfort. Hospice to be involved if helpful for patient care management Follow-up with PCP in: 2 weeks Time spent 65min Scott Aj MD Jul 17, 2016 17:56
== END 2016-07-16 17:30 | DRG 291 ==
LOC: EDSEX 21:54 → SED 21:54 → EDBD 21:54 → EDUNIT# 21:54 → OFED 07-09 02:33 → MPC 07-09 13:27
PROVIDERS: ADMIT Specialist; ATTEND Specialist
PROC: 0HD6XZZ Extraction of Back Skin, External Approach (ICD-10-PCS; principal; 2016-07-09)
DX: I50.31 Acute diastolic (congestive) heart failure (principal); J18.9 Pneumonia, unspecified organism; N17.9 Acute kidney failure, unspecified; N39.0 Urinary tract infection, site not specified; Z68.43 Body mass index [BMI] 50.0-59.9, adult; E66.01 Morbid (severe) obesity due to excess calories; Z66 Do not resuscitate; I10 Essential (primary) hypertension; I73.9 Peripheral vascular disease, unspecified; L89.159 Pressure ulcer of sacral region, unspecified stage; E78.5 Hyperlipidemia, unspecified; D63.8 Anemia in other chronic diseases classified elsewhere; E11.9 Type 2 diabetes mellitus without complications; Z51.5 Encounter for palliative care; G89.29 Other chronic pain; B35.6 Tinea cruris; Z79.01 Long term (current) use of anticoagulants; Z89.511 Acquired absence of right leg below knee; Z86.73 Personal history of transient ischemic attack (TIA), and cerebral infarction without residual deficits; Z86.718 Personal history of other venous thrombosis and embolism; Z89.612 Acquired absence of left leg above knee